=== PATIENT | female | born 1965 | race Caucasian/White ===

== ENCOUNTER 2024-10-06 11:29 | Inpatient (IN) ==
[2024-10-06 12:08] LABS: Base Excess VBG 3.6 mEq/L; HCO3 VBG 30 mmol/L; Oxygen Saturation VBG < 60.0 %; PCO2 VBG 50 mmHg (38-50); PO2 VBG 33 mmHg; pH VBG 7.38 (7.36-7.41)
[2024-10-06 12:22] LABS: Basophils # (auto) 0.04 K/uL (0.00-0.20); Basophils % (auto) 0.4 %; Eosinophils # (auto) 0.01 K/uL (0.00-0.50); Eosinophils % (auto) 0.1 %; Hematocrit (blood only) 38.9 % (37.0-47.0); Immature Granulocytes # (auto) 0.04 K/uL (0.01-0.20); Immature Granulocytes % (auto) 0.4 %; Lymphocytes # (auto) 0.99 K/uL (1.20-3.40); Lymphocytes % (auto) 9.1 %; Mean Corpuscular Hemoglobin 28.6 pg (25.0-34.0); Mean Corpuscular Hgb Conc 33.4 g/dL (32.0-36.0); Mean Corpuscular Volume 85.7 fL (80.0-100.0); Mean Platelet Volume 9.9 fL (9.4-12.4); Monocytes # (auto) 0.53 K/uL (0.11-0.59); Monocytes % (auto) 4.9 %; Neutrophils # (auto) 9.29 K/uL (1.40-6.50); Neutrophils % (auto) 85.1 %; Platelet Count 285 K/uL (130-400); RDW Coefficient of Variation 12.6 % (11.5-14.5); RDW Standard Deviation 38.9 fL (36.4-46.3); Red Blood Count 4.54 M/uL (4.20-5.40)
[2024-10-06 12:47] LABS: BUN Creatinine Ratio 21.8 (10-20); Bilirubin Direct 0.1 mg/dl (0-0.2); Bilirubin,Total 0.5 mg/dl (0.2-1.0); Creatinine Clr Calc Pharmacy 54.4 ml/min; Potassium 5.1 mmol/L (3.5-5.1); Total Protein 6.8 gm/dl (6.0-8.3)
--- NOTE | 2024-10-06 12:48 | CT Scan Report ---
CT head/brain wo con CLINICAL HISTORY: 59 years-old Female with Confusion, R weakness. Acutely altered mental status with weakness and recent fall TECHNIQUE: Multiple axial CT images of the head were obtained without contrast. A dose lowering tech nique was utilized adhering to the principles of ALARA. CT DOSE: 547.75 mGy.cm COMPARISON: None. FINDINGS: There is an ill-defined focus of cortically based increased attenuation within the superior left fron robb lobe measuring up to approximately 2.5 cm on image 20 series 2 compatible with chronic calcificat ion. No associated edema or mass effect. Involutional changes with mild nonspecific white matter hypo densities which may represent a component of chronic microvascular ischemic disease. Senescent calcif ications of the right lentiform nucleus. Cerebral vascular calcifications. There is no midline shift, intracranial mass, hydrocephalus, or acute territorial infarct. No acute intracranial hemorrhage. Sm all chronic lacunar infarcts of the cerebellum. The calvarium is intact. The paranasal sinuses, mastoid air cells, and middle ear cavities are clear . IMPRESSION: 1. No acute intracranial abnormality or calvarial fracture. 2. Nonspecific gyral calcifications of the superior left frontal lobe. ACT 112: Negative or not required by law. The above report was generated using voice recognition software. It may contain grammatical, syntax o r spelling errors. Electronically signed by: Sorin Ricci M.D. 10/06/2024 12:47 PM
[2024-10-06] MEDS: SODIUM CHLORIDE 0.9% 1,000 ML IV ONE ×3 (12:55→13:55)
[2024-10-06 13:04] LABS: Appearance Urine Cloudy (Clear); Bacteria Urine Automated 4+ (None Seen); Bilirubin Urine Negative (Negative); Blood Urine 3+ (Negative); Cast Urine Automated 0-2 /lpf (0-2); Color Urine Yellow; Epithelial Cell Urine Auto 0-2 /hpf (0-2); Glucose Urine UA 3+ (Negative); Ketones Urine Negative (Negative); Leukocyte Esterase Urine 2+ (Negative); Nitrite Urine Negative (Negative); Protein Urine 1+ (Negative); RBC Urine Automated 0-2 /hpf (0-2); Specific Gravity Urine 1.023 (1.000-1.030); Urobilinogen Urine Negative (Negative); WBC Urine Automated >50 /hpf (0-5); pH Urine 5.5 (4.5-7.5)
[2024-10-06] MEDS: METOPROLOL TARTRATE 1 MG/ML VIAL IV STA (13:24)
[2024-10-06 13:48] LABS: Adenovirus PCR Not Detected (NotDetected); Bordetella parapertussis PCR Not Detected (NotDetected); Bordetella pertussis PCR Not Detected (NotDetected); Chlamydia pneumoniae PCR Not Detected (NotDetected); Coronavirus 229E PCR Not Detected (NotDetected); Coronavirus CoV-2 (COVID19)PCR Not Detected (NotDetected); Coronavirus HKU1 PCR Not Detected (NotDetected); Coronavirus NL63 PCR Not Detected (NotDetected); Coronavirus OC43PCR Not Detected (NotDetected); Human Metapneumovirus PCR Not Detected (NotDetected); Influenza A PCR Not Detected (NotDetected); Influenza B PCR Not Detected (NotDetected); Mycoplasma pneumoniae PCR Not Detected (NotDetected); Parainfluenza Virus 1 PCR Not Detected (NotDetected); Parainfluenza Virus 2 PCR Not Detected (NotDetected); Parainfluenza Virus 3 PCR Not Detected (NotDetected); Parainfluenza Virus 4 PCR Not Detected (NotDetected); Respiratory Syncytial VirusPCR Not Detected (NotDetected); Rhinovirus/Enterovirus PCR Not Detected (NotDetected)
[2024-10-06] MEDS ORDERED: STAT IV Infusion **Titration per Protocol STA (14:00)
[2024-10-06] MEDS ORDERED: PENDING D5 1/2NS+20mEq KCL IVF SCH (14:00)
[2024-10-06] MEDS ORDERED: PENDING 1/2NSS+20mEq KCL IVF SCH (14:00)
[2024-10-06] MEDS ORDERED: HHS GOAL RANGE 250-350 mg/dl ONE (14:00)
[2024-10-06] MEDS ORDERED: PHARMACY GLYCEMIC MGMT CONSULT PRN (14:00)
--- NOTE | 2024-10-06 14:08 | History & Physical Report ---
Date of Service October 06, 2024 History of Present Illness Chief Complaint: Hyperglycemia, confusion Primary Care Provider: Milvia Levy PA-C This is a 59-year-old female with PMH of poorly controlled type 2 diabetes, diabetic retinopathy of both eyes, dyslipidemia, hypertension and other medical problems listed below presents to the ED Past Med/Surg History Problem List Medical History (Updated 07/20/18 @ 00:00 by Beulah Smith) Diabetes type 2, uncontrolled Social History Smoking Status: Never smoker Preferred Language: Danish Feels Safe at Home: Yes Results & Data Results & Data Vital Signs (Past 12 Hours) Vital Signs Temp Pulse Pulse Resp BP BP Pulse Ox 10/06/24 12:52 93 H 15 148/98 H 96 10/06/24 12:07 100 H 10/06/24 11:40 36.8 C 97 H 16 183/107 H 98 O2 Del Method 10/06/24 12:52 Room Air 10/06/24 12:07 10/06/24 11:40 Room Air Code Status & VTE Plan VTE Prophylaxis Plan VTE Prophylaxis will be ordered: Yes
[2024-10-06] MEDS: NovoLIN-R INSULIN PER UNIT CHARGE IV STA (14:11)
[2024-10-06] MEDS: cefTRIAXone SODIUM 2,000 MG/50 ML BAG IV STA (14:15)
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
[2024-10-06] MEDS: INSULIN REGULAR 250 UNITS in SODIUM CHLORIDE 0.9% 247.5 ML IV SCH (14:41)
[2024-10-06] MEDS ORDERED: ACETAMINOPHEN 325 MG TAB PO PRN (15:48)
[2024-10-06] MEDS ORDERED: ONDANSETRON INJ 2 MG/ML 2 ML VIAL IV PRN (15:48)
[2024-10-06] MEDS ORDERED: POLYETHYLENE (MIRALAX) 17 GM PACK PO PRN (15:48)
[2024-10-06 15:50] LABS: BUN Creatinine Ratio 21.9 (10-20); Calcium 8.5 mg/dl (8.6-10.3); Creatinine Clr Calc Pharmacy 62.4 ml/min; Magnesium 2.1 mg/dl (1.7-2.4); Phosphorus 3.5 mg/dl (2.5-4.9); Potassium 4.2 mmol/L (3.5-5.1)
[2024-10-06] MEDS ORDERED: lisinopril 20 MG TAB PO SCH (16:15)
[2024-10-06] MEDS ORDERED: GLUCOSE 10 TAB/TUBE PO PRN (16:30)
[2024-10-06] MEDS ORDERED: DEXTROSE 50% 50 ML SYRINGE IV PRN (16:30)
[2024-10-06] MEDS ORDERED: GLUCAGON FOR INJ 1 MG VIAL SQ PRN (16:30)
[2024-10-06] MEDS ORDERED: GLUCOSE 40% GEL 15 GM TUBE PO PRN (16:30)
[2024-10-06] MEDS ORDERED: CARBOHYDRATES FOR HYPOGLYCEMIA PO PRN (16:30)
[2024-10-06] MEDS: Patient's ALLERGY Info needs ENTERED SCH (16:37)
[2024-10-06] MEDS: INSULIN ASPART PER UNIT CHARGE SC ONE (17:58)
[2024-10-06] MEDS: lisinopril 20 MG TAB PO SCH ×2 (18:08→18:30)
[2024-10-06 19:25] LABS: BUN Creatinine Ratio 20.9 (10-20); Calcium 8.5 mg/dl (8.6-10.3); Potassium 3.9 mmol/L (3.5-5.1)
[2024-10-06] MEDS: LANTUS PER UNIT CHARGE SC ONE (20:45)
[2024-10-06] MEDS: SODIUM CHLOR 0.45% + 20MEQ KCL 20 MEQ/1,000 ML BAG IV SCH (21:26)
[2024-10-06] MEDS: INSULIN ASPART PER UNIT CHARGE SC SCH (21:46)
[2024-10-06] MEDS: DORZOLAMIDE/TIMOLOL 22.3/6.8MG/ML 10 ML BTL OPB SCH (22:45)
[2024-10-06 23:33] LABS: BUN Creatinine Ratio 23.8 (10-20); Calcium 8.2 mg/dl (8.6-10.3); Creatinine Clr Calc Pharmacy 71.7 ml/min; Potassium 3.7 mmol/L (3.5-5.1)
[2024-10-07] MEDS: INSULIN ASPART PER UNIT CHARGE SC SCH ×2 (00:11→09:06)
[2024-10-07 02:32] LABS: BUN Creatinine Ratio 24.4 (10-20); Calcium 7.8 mg/dl (8.6-10.3); Creatinine Clr Calc Pharmacy 69.9 ml/min; Potassium 3.9 mmol/L (3.5-5.1)
[2024-10-07 07:40] LABS: BUN Creatinine Ratio 25.3 (10-20); Calcium 7.9 mg/dl (8.6-10.3); Creatinine Clr Calc Pharmacy 72.7 ml/min; Potassium 4.2 mmol/L (3.5-5.1)
[2024-10-07 08:05] LABS: Estimated Average Glucose > 438 mg/dl; Hemoglobin A1C > 16.9 % (4.5-5.6)
--- NOTE | 2024-10-07 08:58 | Ultrasound Report ---
RIGHT LOWER EXTREMITY VENOUS DOPPLER CLINICAL HISTORY: Right lower extremity swelling. COMPARISON STUDY: No previous studies for comparison. TECHNIQUE: Sonography of the deep venous system of the right lower extremity was performed. Compress ion and augmentation were evaluated. FINDINGS: The right common femoral vein is patent. There is nonocclusive deep venous thrombus within the right superficial femoral vein. No additional sites of deep venous thrombus within the right low er extremity are present. IMPRESSION: Positive study with deep venous thrombus within the right superficial femoral vein. ACT 112: Negative or not required by law. Electronically signed by: Doc Gutierres M.D. 10/07/2024 8:57 AM
[2024-10-07] MEDS: ASPIRIN 81 MG ECTAB PO SCH (09:04)
--- NOTE | 2024-10-07 09:23 | Electrocardiogram Report ---
Test Reason : Blood Pressure : */* mmHG Vent. Rate : 103 BPM Atrial Rate : 103 BPM P-R Int : 126 ms QRS Dur : 80 ms QT Int : 342 ms P-R-T Axes : 63 23 74 degrees QTcB Int : 448 ms Sinus tachycardia Poor R wave progression, consider anterior KS vs. lead placement vs. LVH Abnormal ECG No previous ECGs available Confirmed by Jorgito Kim ([id number]) on 10/07/2024 9:23:11 AM Referred By: Confirmed By: Jorgito Kim
[2024-10-07 10:29] LABS: Calcium 8.1 mg/dl (8.6-10.3); Potassium 4.4 mmol/L (3.5-5.1)
[2024-10-07 10:35] LABS: BUN Creatinine Ratio 23.3 (10-20); Creatinine Clr Calc Pharmacy 70.2 ml/min
[2024-10-07] MEDS: APIXABAN 5 MG TABLET PO SCH (13:36)
[2024-10-07] MEDS: GABAPENTIN 100 MG CAP PO SCH (13:37)
[2024-10-07] MEDS: cefTRIAXone SODIUM 2,000 MG/50 ML BAG IV SCH (13:37)
--- NOTE | 2024-10-07 14:09 | CT Scan Report ---
CT OF THE CERVICAL SPINE WITHOUT CONTRAST CLINICAL HISTORY: Arm numbness. Right-sided weakness. COMPARISON STUDY: No previous studies for comparison. TECHNIQUE: Helical axial images of the cervical spine were obtained without IV contrast. Sagittal a nd coronal reconstructions were viewed. Automated exposure control was utilized for the study. A do se lowering technique was utilized adhering to the principles of ALARA. FINDINGS: Alignment of the cervical spine is anatomic. Vertebral body heights are maintained. No acut e cervical spine fracture or subluxation is present. There is no prevertebral edema. Facet joints are intact. The central canal and neural foramen are suboptimally assessed by CT technique. Multiple di sc bulges with osteophyte formation within the cervical spine are present. There is no evidence for s evere central canal stenosis by CT. Paravertebral soft tissues are unremarkable. There is mild to mod erate multilevel degenerative disc disease within the cervical spine. There is mild facet arthrosis. IMPRESSION: 1. No acute cervical spine fracture or subluxation. 2. Mild to moderate multilevel degenerative disc disease and facet arthrosis within the cervical spin e. Suboptimal evaluation of the central canal and neural foramen given CT technique. If clinically in dicated, MRI could be obtained. ACT 112: Negative or not required by law. Electronically signed by: Doc Gutierres M.D. 10/07/2024 2:08 PM
--- NOTE | 2024-10-07 15:02 | Pharmacy Report ---
Pharmacy Glycemic Short Note 2 - Date of Service October 07, 2024 - Glycemic Short BSG Results (Last 24 hours): 10/06/24 10/06/24 10/06/24 14:46 15:09 15:52 Glucose 421 H* POC Glucose 552 H* 466 H* 10/06/24 10/06/24 10/06/24 16:57 17:56 18:57 Glucose 294 H POC Glucose 307 H* 297 H 10/06/24 10/06/24 10/06/24 18:58 20:04 21:15 Glucose POC Glucose 254 H 205 H 195 H 10/06/24 10/06/24 10/06/24 22:18 22:26 22:42 Glucose 109 H POC Glucose 126 H 104 H 10/06/24 10/06/24 10/06/24 23:01 23:20 23:44 Glucose POC Glucose 104 H 118 H 128 H 10/07/24 10/07/24 10/07/24 00:08 01:59 04:10 Glucose 142 H POC Glucose 128 H 156 H 10/07/24 10/07/24 10/07/24 06:11 07:13 09:42 Glucose 143 H 175 H POC Glucose 146 H 10/07/24 11:00 Glucose POC Glucose 156 H OUTPATIENT ANTIDIABETIC REGIMEN: * Levemir 20 units SQ q HS * Ozempic 0.5mg SQ weekly * metformin 1000mg po bid HbA1c > 16.9% on 10/07/24 ASSESSMENT: * 59 year old female admitted last evening for hyperglycemia likely induced by a UTI. Altough BSG on admit was 759mg/dL, this is not likely HHS as the effective serum osmolality is < 320. (Na was 127) * A 10unit regular insulin bolus was given yesterday afternoon and then a regular insulin drip was started at 0.1 units/kg/hr. BSGs quickly decreased and at bedtime BSG was 126mg/dL. * The insulin drip was transitioned to SQ insulin last evening. 15 units of lantus were given last night and a weight based bolus insulin regimen with a stress of 3 was started. * BSGs have remained better controlled today so far. Fasting BSG was 146 this morning. * Lantus 15units q HS will be continued and as will the bolus insulin with the parameters started last evening. * She continues on ceftriaxone for the treatment of her UTI. PLAN FOR INPATIENT GLYCEMIC CONTROL: * Hold outpatient diabetes medications * Basal insulin * Lantus 15 units SQ HS * Bolus insulin * NovoLog per scale ACHS or Q6hrs while NPO * Goal Range: Low 110 mg/dL - High 140 mg/dL * Correction Factor: 20 mg/dL/unit * Nutritional / Prandial insulin per carb ratio of 1 unit per 8 grams CHO consumed
--- NOTE | 2024-10-07 16:48 | Hospitalist Progress Note ---
Date of Service October 07, 2024 Assessment & Plan (1) Diabetes mellitus with hyperosmolarity without hyperglycemic hyperosmolar nonketotic coma: (2) Urinary tract infection: Plan: E. coli (3) Deep vein thrombosis, lower right extremity: (4) Diabetic peripheral neuropathy associated with type 2 diabetes mellitus: (5) Diabetes type 2, uncontrolled: (6) Glaucoma: Plan Patient overall significantly improving now that her HHNK is resolved and glucoses have improved Working with pharmacy and transitioning to basal bolus insulin management, Continue Rocephin for UTI, follow sensitivities Suspect patient may be having peripheral neuropathy associated with her severely uncontrolled diabetes as the etiology of her paresthesias of her right hand. Continue gabapentin if continues to have significant issues with the right arm can move forward with MRI of the cervical spine DVT of right lower extremity, most likely due to immobility. Eliquis started for treatment. Will need to evaluate costs with through case management Therapies Attempted to contact sister, appears as though wrong number is in the EMR Okay to [facility] Admission and Anticipated Discharge Date Admission Date: October 06, 2024 Subjective Patient is feeling improved. More alert. Still with some numbness and tingling of her right hand. Physical Exam Physical Exam: Constitutional: Alert, no acute distress, less toxic in appearance HEENT: Mucous membranes moist. Lungs: Clear to auscultation, decreased, no wheezes rales or rhonchi CV: S1-S2, regular Abdomen: Soft, nontender, nondistended Extremities: Right lower extremity edema 1+, greater than left Neuro: Able to move her right upper extremity. No noted weakness. Psych: Cooperative, normal mood Results & Data Results & Data Vital Signs (Past 12 Hours) Vital Signs Temp Pulse Pulse Resp BP Pulse Ox O2 Del Method 10/07/24 14:43 36.4 C L 81 18 111/71 95 Room Air 10/07/24 11:00 36.8 C 73 18 110/71 95 Room Air 10/07/24 08:00 77 10/07/24 08:00 Room Air 10/07/24 07:14 36.3 C L 77 18 118/71 93 Room Air 10/07/24 06:17 36.5 C 78 20 116/71 95 Room Air Diagnostic Findings Reviewed imaging, laboratory and diagnostic studies. Pertinent findings as below. Right lower extremity ultrasound significant for right superficial femoral DVT CT of the cervical spine shows some mild degenerative disc disease, suboptimal evaluation for central canal or foraminal stenosis. Hemoglobin A1c 16.9% Fingerstick glucose reviewed Electrolytes stable Urine culture growing E. coli (2) Urinary tract infection Hematuria presence: with hematuria Urinary tract infection type: acute cystitis Qualified Code(s): N30.01 - Acute cystitis with hematuria
[2024-10-07] MEDS: LANTUS PER UNIT CHARGE SC SCH (20:27)
--- OUTSIDE RECORDS SUMMARY | 2024-10-08 03:14 | External Medical Summary | Summary of Care ---
Author Name Unknown Organization [facility] Address [address] [place] [address] Phone [phone] Care Team Providers Care Combination Welder Apprentice Name Role Phone Milvia Levy PA-C Primary Care Provider [phone] Reason for Visit * Reason Onset Date Comments Follow Up 09/09/2024 Encounter Details Date Type Department Care Team (Late st Contact Info) Description 09/09/2024 Telephone Ophthalmology, [facility] [address] [place] [id number] Zaheer Cardoza, [address] [place] [id number] Follow Up Allergies No known active allergiesdocumented as of this encounter (statuses as of 09/09/2024) Medications Medication Sig Dispensed Refills Start Date End Date Status aspirin enteric coated 81 MG TBEC Take 1 Tablet by mouth in the morning. 100 Tab 3 07/23/2018 Active OneTouch UltraSoft LancetsIndications :Type 2 diabetes mellitus with hemoglobin A1c goal of less than 7.0% (HCC) Use as directed 4 times a day as needed for Hyperglycemia (high sugar) or Hypoglycemia (low sugar). Use up to four times a day as directed 200 Each 3 02/18/2023 Active OneTouch Verio In Vitro Strip (Glucose Blood)Indications: Type 2 diabetes mellitus with hemoglobin A1c goal of less than 7.0% (HCC) Use up to 4 times a day E11.9 100 Strip 11 02/18/2023 Active Repaglinide 2 MG Oral Tablet Take 2 Tablets by mouth in the morning and 2 Tablets at noon and 2 Tablets in the evening. Take with meals. 15 minutes before each meal. 540 Tablet 1 03/11/2023 Active Ofloxacin 0.3 % Ophthalmic Solution (Ocuflox) Instill 1 Drop into both eyes in the morning and 1 Drop at noon and 1 Drop in the evening and 1 Drop before bedtime. Start this drop in both eyes 2 days prior to every office visit and continue for a total of 5 days.. 5 mL 6 08/16/2023 Active metFORMIN HCl ER 500 MG Oral Tablet Extended Release 24 Hour (Glucophage XR)Indications:Typ e 2 diabetes mellitus with hemoglobin A1c goal of less than 7.0% ([facility]) Take 2 Tablets by mouth 2 times a day with morning and evening meals. 360 Tablet 1 01/24/2024 Active Lisinopril-hydroCH LOROthiazide 10-12.5 MG Oral TabletIndications: HTN, goal below 140/90,HTN, goal below 140/90 Take 1 Tablet by mouth in the morning. 90 Tablet 1 01/24/2024 Active Acarbose 25 MG Oral Tablet (Precose)Indicatio ns:Type 2 diabetes mellitus with hemoglobin A1c goal of less than 7.0% ([facility]) Take 1 Tablet by mouth in the morning and 1 Tablet at noon and 1 Tablet before bedtime. at start of meals. 270 Tablet 1 01/24/2024 Active Magnesium 400 MG Oral TabletIndications: Leg cramps Take 1 Tablet by mouth at bedtime. 100 Tablet 1 01/24/2024 Active Magnesium Oxide -Mg Supplement 400 (240 Mg) MG Oral Tablet (Mag-Ox) TAKE 1 TABLET BY MOUTH EVERYDAY AT BEDTIME 01/24/2024 Active Levemir FlexPen 100 UNIT/ML Subcutaneous Solution Pen-injector (Insulin Detemir)Indication s:Proliferative diabetic retinopathy of both eyes with macular edema associated with type 2 diabetes mellitus (HCC),Type 2 diabetes mellitus with hemoglobin A1c goal of less than 7.0% (HCC) Inject 20 Units under the skin every night at bedtime. 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, with macular edema, with proliferative retinopathy ([facility]) 1.5 mg IJ PRN 08/06/2024 08/06/2025 Active documented as of this encounter (statuses as of 09/09/2024) Active Problems Problem Noted Date Diagnosed Date 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, with macular edema, with proliferative retinopathy 01/24/2024 Proliferative diabetic retin opathy of both eyes with macular edema associated with type 2 diabetes mellitus 07/29/2019 BENIGN HYPERTENSION 06/16/2001 PURE HYPERCHOLESTEROLEM 06/16/2001 Type 2 diabetes mellitus wit h hemoglobin A1c goal of less than 7.0% 06/16/2001 Overview: ICD-10 update of inactive term documented as of this encounter (statuses as of 09/09/2024) Immunizations Name Administration Dates Next Due COVID-19 mRNA, LNP-s, No Pre serve, 2-Dose Series (Moderna) 05/13/2021,04/15/2021 COVID-19, mRNA, LNP-s, PF, B ooster, 100mcg/0.5mg (Moderna) 11/19/2021 Seasonal Influenza Virus Vac cine, Unspecified Formulation 10/02/2018 Seasonal Influenza, PF, 6 M & above, IM , (FluLaval or Fluzone) 07/25/2023,11/30/2021,11/02/2020,2017 TDAP (age 10 and older)(Boostrix) 05/02/2020 documented as of this encounter Social History Tobacco Use Types Packs/Day Years Used Date Smoking Tobacco: Never Smokeless Tobacco: Never Alcohol Use Standard Drinks/Week Comments No 0 (1 standard drink = 0.6 oz pur e alcohol) PHQ-2 Answer Date Recorded PHQ-2 Score -1 01/15/2019 Utilities Answer Date Recorded Do you have trouble paying y our heating, water, or electric bill? (Adult - for ages 18 years and over) Not on file 04/21/2024 Is your family able to pay t he heat, water, or electric bill? (Household - for ages 0-17 years) Not on file 04/21/2024 Does your family have access to good internet? (Household - for ages 0-17 years) Not on file 04/21/2024 Social Connections Answer Date Recorded How often do you feel lonely or isolated from those around you? (Adult - for ages 18 years and over) Not on file 04/21/2024 Sex and Gender Information Value Date Recorded Sex Assigned at Not on file Gender Identity Not on file Sexual Orientation Not on file Job Start Date Occupation Industry Not on file Not on file Not on file documented as of this encounter Miscellaneous Notes * Telephone Encounter - Araceli Valerio OSA - 09/09/2024 3:24 PM EST Pt did not wish to schedule at this time. Wanted to call later to schedule appointment. Needs a 4-6week return. Between Oct 12 and . documented in this encounter Plan of Treatment Health Maintenance Due Date Last Done Comments DXA Scan 1965 Pneumococcal Vaccine: Pediatrics (0 to 5 Years) and At-Risk Patients (6 to 64 Years) (1 of 2 - PCV) 1971 HIV Screening 1980 Hepatitis C Screening 1983 Hepatitis B Vaccine (1 of 3 - 19+ 3-dose series) 1984 Zoster Vaccines (1 of 2) 1984 HPV/Co-Test 1995 Mammogram 2005 Cervical Cancer Screening 03/26/2006 Pap Smear 03/26/2006 03/26/2003, 08/04/2001 Cologuard 2010 Colonoscopy 2010 Colorectal Cancer Screening 2010 Fecal Occult Blood Test 2010 Sigmoidoscopy 2010 Depression Screening 01/16/2020 01/15/2019 Diabetic Foot Exam 11/02/2021 11/02/2020, 1 12/17/2018, 09/17/2018 COVID-19 Vaccine (3 - Moderna risk series) 12/17/2021 11/19/2021, 05/13/2021, 04/15/2021 Influenza Vaccine (FLU shot) (#1) 2024 07/25/2023, 11/30/2021, 11/02/2020, Additional history exists HbA1c 07/26/2024 01/24/2024, 07/06, 01/22/2023, Additional history exists Albumin/Creatinine Ratio 01/23/2025 024, 07/25/2023, 07/25/2022, Additional history exists B-12 01/23/2025 01/24/2024, 01/03, 05/20/2021, Additional history exists GFR 01/23/2025 01/24/2024, 07/06, 01/22/2023, Additional history exists Diabetic Eye Exam 01/30/2025 01/31/2024, , 01/31/2024, Additional history exists Lipid Panel 07/25/2027 07/25/2022, 05/04, 11/02/2020, Additional history exists DTap/Tdap Vaccines (2 - Td or Tdap) 05/02/2030 05/02/2020 HPV (Gardasil) Vaccine Aged Out No lo nger eligible based on patient's age to complete this topic MENINGOCOCCAL (MENACTRA/MENVEO) Aged Out No longer eligible based on patient's age to complete this topic documented as of this encounter Medical Devices Not on filedocumented as of this encounter Care Teams Combination Welder Apprentice Relationship Specialty Start Date End Date Milvia Levy PA-C [phone] [place] [id number] PCP - General Physician Mechanical Product Design Engineer 01/24/24 documented as of this encounter
--- OUTSIDE RECORDS SUMMARY | 2024-10-08 03:14 | External Medical Summary | Summary of Care ---
Author Name Unknown Organization [facility] Address [address] [facility] [address] Phone [phone] Care Team Providers Care Sales Representative Jewelry Name Role Phone Milvia Levy PA-C Primary Care Provider +1 [phone] Reason for Visit * Reason Comments Follow Up * Precert (Within 10 days (routine)) - Authorized Specialty Diagnoses / Procedures Referred By Qasim weller Referred To Contact Ophthalmology Diagnoses Type 2 diabetes mellitus with proliferative diabetic retinopathy with macular edema, bilateral (HCC) Procedures IA BEVACIZUMAB INJECTION IA INTRAVITREAL NJX PHARMACOLOGIC AGT SPX Zaheer Cardoza DO [address] [place] [address] Referral ID Status Reason Start Date Expiration Date V isits Requested Visits Authorized [id number] Authorized Precert 08/13/2024 11/03/2099 [id number] Encounter Details Date Type Department Care Team (Late st Contact Info) Description 09/09/2024 2:30 PM EST Office Visit Ophthalmology, [facility] [address] [place] [address] Zaheer Cardoza DO [address] [place] [address] Proliferative diabetic retinopathy of both eyes with macular edema associated with type 2 diabetes mellitus (HCC)* Allergies No known active allergiesdocumented as of [...] A1c goal of less than 7.0% (HCC) Take 2 Tablets by mouth 2 times [...] A1c goal of less than 7.0% (HCC) Take 1 Tablet by mouth in the [...] hemoglobin A1c goal of less than 7.0% ([facility]) Use with levemir daily 90 Each 1 [...] with macular edema, with proliferative retinopathy (HCC) 1.5 mg IJ PRN 08/06/2024 08/06/2025 Active [...] on file documented as of this encounter Progress Notes * Zaheer Cardoza DO - 09/09/2024 2:30 PM EST [facility] [place] Nursing Notes: Vita Obregon RN 09/09/24 1430 Signed Gladis Cevallos is a 59 year old year old female who presents for NVG/PDR OU. 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 Yes. Do you check your blood sugars daily? YES. Fasting BS this mornin mg/dl. Last Hemoglobin A1C: Lab Results Component Value Date/Time HGBA1C 12.7 (H) 01/24/2024 12:16 PM HGBA1C 9.5 (H) 07/25/2023 12:18 PM HGBA1C 14.1 (H) 01/22/2023 12:14 PM HGBA1C 8.7 (H) 11/02/2020 12:15 PM HGBA1C 8.3 (H) 05/02/2020 04:10 PM HGBA1C 6.9 (H) 10/16/2019 04:[address]? yes OCT image(s) of both eyes acquired and filed/scanned into chart. Base Eye Exam Visual Acuity (Snellen - Linear) Right Left Dist cc 20/150 -2 20/200 -1 Dist ph cc 20/150 NI Correction: Glasses OU-"blurry" Tonometry (2:28 PM) Right Left Pressure 12 12 Pupils Pupils APD Right PERRL None Left PERRL None Visual Vyas (Counting fingers) Right Left Restrictions Partial outer superior nasal, inferior nasal deficiencies Partial outer superior temporal, inferior temporal, superior nasal, inferior nasal deficiencies Extraocular Movement Right Left Full, Ortho Full, Ortho Neuro/Psych Oriented x3: Yes Mood/Affect: Normal Dilation Both eyes: 0.5% Proparacaine @ 2:28 PM Dilation #2 Both eyes: 1.0% Mydriacyl, 2.5% Phenylephrine @ 2:28 PM Dilation #3 Both eyes: 1.0% Mydriacyl, 2.5% Phenylephrine @ 2:30 PM Dilation Comments Patient cautioned that effects of dilation may last 2-7 hours dependant upon individual reaction. It was discussed that driving while dilated is not recommended. EXTERNAL: The ocular adnexae are unremarkable. SLE: Lids/Lashes: wnl OU Conjunctiva/Sclera: quiet OU Cornea: clear OU Anterior Chamber: deep and quiet OU Iris: normal OU; no NVI OD; +NVI OS-regressed Lens: 1-2+mixed cataracts OU Dilated fundus exam OD: vitreous: VH--new/worse optic nerve: 0.2, no edema/pallor, regressed NVD macula: environmental director vessels: wnl periphery: PRP, environmental director, no RT/RD Dilated fundus exam OS: vitreous: VH optic nerve: NVD/fibrosis macula: environmental director vessels: wnl periphery: PRP, environmental director, no RT/RD Faint choroidal nevus in the nasal periphery with overlying drusen. Flat. Measures approximately 2.8 mm x 3.6 mm. OCT Interpretation: OD: +dme--improved OS: +dme--improved A/P: 1. Proliferative Diabetic Retinopathy/NVG OU -s/p PRP Tuller -s/p Avastin OU (last 01/31/24 Gómez) OD: -09/09/2024 --VH OD -Avastin 09/09/2024 OS: -08/06/2024 ; stable DME, +new NVI OS -Avastin 08/06/24 OS -5 weeks 09/09/2024: improved DME -recommend HgbA1C <7, BP and lipid control. Continue: Cosopt 1 drop 2 times a day both eyes -An examination for this condition was completed which is unrelated to the procedure that was performed today -monitor 2. Choroidal nevus OS -low risk -monitor 3. Cataracts OU -monitor F/u 4-6 weeks, OCT OU Zaheer Cardoza DO CC: Milvia Levy PA-C CC: PCP: Milvia Levy PA-C TIMEOUT PROCEDURE: correct patient identity-YES correct procedure and consent-YES verified side and site-YES correct patient position-YES all necessary equipment/prior studies present-YES reviewed special requirements of this patient-YES PROCEDURE: Intravitreal injection of Avastin 1.25mg OD INFORMED CONSENT: Patient is aware that this is an off-label use of Avastin and that Avastin is not FDA approved for this use. Risks, benefits and alternatives have been discussed with the patient. Risks include, but are not limited to: retinal tears, detachments, hemorrhage, glaucoma, infection, cataracts, need formore procedures and the potential risk of arterial thromboembolic events following use of intravitreal VEGF inhibitors defined as nonfatal stroke, nonfatal myocardial infarction or vascular . Patient is aware of these risks and consents to the procedure. DESCRIPTION OF PROCEDURE: The procedure site was confirmed. Topical proparacaine was applied to the surface of the eye after which subconjunctival anesthetic was administered. The area was prepped in the standard aseptic manner with 5% Betadine solution. An eyelid speculum was placed and 0.05 ml of a 25mg/ml solution of Avastin was injected 3.75 mm posterior to the limbus into the midvitreous cavity with a 30 gauge short needle. The Betadine was flushed from the eye, the eye speculum was removed and optic nerve perfusion was insured. The patient tolerated the procedure without difficulty and was given followup instructions and instructed to use ophthalmic ointment 3x/day as needed. Zaheer Cardoza DO, performed the procedure in its entirety. documented in this encounter Nursing Notes * Kathrine Hayward MED ASSIST - 09/09/2024 3:00 PM EST Gladis Cevallos to receive 37 Avastin 2.75MG Injection of the Right eye. Correct eye confirmed with patient and marked by Zaheer Cardoza DO Avastin 2.75MG lot # [id number] Exp. Date: 11/10/24 * Vita Obregon RN - 09/09/2024 2:20 PM EST Gladis Cevallos is a 59 year old year old female who presents for NVG/PDR OU. 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 Yes. Do you check your blood sugars daily? YES. Fasting BS this mornin mg/dl. Last Hemoglobin A1C: Lab Results Component Value Date/Time HGBA1C 12.7 (H) 01/24/2024 12:16 PM HGBA1C 9.5 (H) 07/25/2023 12:18 PM HGBA1C 14.1 (H) 01/22/2023 12:14 PM HGBA1C 8.7 (H) 11/02/2020 12:15 PM HGBA1C 8.3 (H) 05/02/2020 04:10 PM HGBA1C 6.9 (H) 10/16/2019 04:[address]? yes OCT image(s) of both eyes acquired and filed/scanned into chart. documented in this encounter Plan of Treatment Scheduled Orders Name Type Priority Associated Diagnoses Orde r Schedule RETINA SCAN DIAGNOSTIC IMAGE, POSTERIOR Procedures Routine Proliferative diabetic retinopathy of both eyes with macular edema associated with type 2 diabetes mellitus (HCC) Ordered: 09/09/2024 Health Maintenance Due Date Last Done Comments [...] 05/20/2021, Additional history exists GFR 01/23/2025 01/24/2024, 09/2 11/2022, 01/22/2023, Additional history exists Diabetic Eye Exam 01/30/2025 01/31/2024, , 01/31/2024, Additional history exists Lipid Panel 07/25/2027 07/25/2022, 0705/2021, 11/02/2020, Additional history exists DTap/Tdap Vaccines (2 - Td or Tdap) 05/02/2030 05/02/2020 HPV (Gardasil) Vaccine Aged Out No lo nger eligible based on patient's age to complete this topic MENINGOCOCCAL (MENACTRA/MENVEO) Aged Out No longer eligible based on patient's age to complete this topic documented as of this encounter Medical Devices Not on filedocumented as of this encounter Visit Diagnoses Diagnosis Proliferative diabetic retinopathy of both eyes with macular edema associated with type 2 diabetes mellitus (HCC)- Primary documented in this encounter Administered Medications Active Administered Medications - up to 3 most recent administrations Medication Order MAR Action Action Date Dose Rate Site bevaCIZumab (Avastin) inj 1.25 mg 1.25 mg, Intravitreal, PRN Other, Starting on Leeanna 08/06/24 at 0928, Until Sat08/06/25 at 09, For 365 days Given 09/09/2024 3:01 PM EST 2.75 mg Eye R ight Given 08/06/2024 10:55 AM EDT 1.25 mg E ye Left ROPivacaine (Naropin) inj 1.5 mg 1.5 mg, Injection, PRN Other, Starting on Leeanna 08/06/24 at 0928, Until Sat08/06/25 at 09, For 365 days Given 09/09/2024 3:01 PM EST 1.5 mg Eye R ight Given 08/06/2024 10:55 AM EDT 1.5 mg E ye Left documented in this encounter Care Teams Sales Representative Jewelry Relationship Specialty Start Date End Date Milvia Levy PA-C [address] [facility] [place] [address] PCP - General Physician Livestock Inspector 01/24/24 documented as of this encounter
--- OUTSIDE RECORDS SUMMARY | 2024-10-08 03:14 | External Medical Summary | Summary of Care ---
Author Name Unknown Organization [facility] Address [address] [place] [address] Phone [phone] Care Team Providers Care Wind Development Director Name Role Phone Milvia Levy PA-C Primary Care Provider [phone] [phone] Reason for Visit * Reason Onset Date Comments Health Maintenance 09/08/2024 Encounter Details Date Type Department Care Team (Late st Contact Info) Description 09/08/2024 Telephone [facility] [address] [place] [address] Milvia Levy PA-C [address] [place] [address] Health Maintenance Allergies No known active allergiesdocumented as of this encounter (statuses as of 09/08/2024) Medications Medication Sig Dispensed Refills Start Date [...] hemoglobin A1c goal of less than 7.0% ([facility]) Take 1 Tablet by mouth in the [...] as of this encounter (statuses as of 09/08/2024) Active Problems Problem Noted Date Diagnosed Date [...] as of this encounter (statuses as of 09/08/2024) Immunizations Name Administration Dates Next Due COVID-19 [...] encounter Miscellaneous Notes * Telephone Encounter - Ghazal Griffith ROGELIO - 09/08/2024 9:35 AM EST Care Gaps Comprehensive Care Outreach Last Office/Telemedicine Visit: 07/24/2024 (in office), Visit date not found (telemedicine) Next Office Visit: Visit date not found Hemoglobin AIC Results: Lab Results Component Value Date/Time HEMOGLOBIN A1C - [facility] 12.7 (H) 01/24/2024 12:16 PM HEMOGLOBIN A1C - [facility] 9.5 (H) 07/25/2023 12:18 PM HEMOGLOBIN A1C - [facility] 14.1 (H) 01/22/2023 12:14 PM HEMOGLOBIN A1C - [facility] 8.7 (H) 11/02/2020 12:15 PM HEMOGLOBIN A1C - [facility] 8.3 (H) 05/02/2020 04:10 PM HEMOGLOBIN A1C - [facility] 6.9 (H) 10/16/2019 04:08 PM BP Readings from Last 1 Encounters: 07/24/24 148/88 Reviewed Health Maintenance below: Health Maintenance Topic Date Due DXA Scan Never done Pneumococcal Vaccine: Pediatrics (0 to 5 Years) and At-Risk Patients (6 to 64 Years) (1 of 2 - PCV)Never done HIV Screening Never done Hepatitis C Screening Never done Hepatitis B Vaccine (1 of 3 - 19+ 3-dose series) Never done Zoster Vaccines (1 of 2) Never done Mammogram Never done Cervical Cancer Screening 03/26/2006 Colorectal Cancer Screening Never done Depression Screening 01/16/2020 Diabetic Foot Exam 11/02/2021 COVID-19 Vaccine (3 - Moderna risk series) 12/17/2021 Influenza Vaccine (FLU shot) (1) 07/05/2024 HbA1c 07/26/2024 Albumin/Creatinine Ratio 01/23/2025 GFR 01/23/2025 B-12 01/23/2025 Diabetic Eye Exam 01/30/2025 Ov 3 month dec Dexa Mamm Pap Refused all HM with pcp last month labs alredy ordered Care Gap Outreach Action Taken: Left message documented in this encounter Plan of Treatment Upcoming Encounters Date Type Department Care Team (Late st Contact Info) Description 09/09/2024 2:30 PM EST Office Visit Ophthalmology, [facility] [address] [place] [address] Zaheer Cardoza, [address] [place] [address] Health Maintenance Due Date Last Done Comments [...] filedocumented as of this encounter Care Teams Wind Development Director Relationship Specialty Start Date End Date Milvia Levy PA-C [address] [facility] [place] [address] PCP - General Physician Digital Sales Manager 01/24/24 documented as of this encounter
--- OUTSIDE RECORDS SUMMARY | 2024-10-08 03:14 | External Medical Summary | Summary of Care ---
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 100 Tab 3 07/23/20 18 Active OneTouch UltraSoft LancetsIndication s:Type 2 diabetes mellitus with hemoglobin A1c goal of less than 7.0% (HCC) Use as directed 4 times a day as needed for Hyperglycemia (high sugar) or Hypoglycemia (low sugar). Use up to four times a day as directed 200 Each 3 02/19/20 23 Active OneTouch Verio In Vitro Strip (Glucose Blood)Indications :Type 2 diabetes mellitus with hemoglobin A1c goal of less than 7.0% (HCC) Use up to 4 times a day E11.9 100 Strip 11 02/19/20 23 Active Repaglinide 2 MG Oral Tablet Take 2 Tablets by mouth in the morning and 2 Tablets at noon and 2 Tablets in the evening. Take with meals. 15 minutes before each meal. 540 Tablet 1 03/11/20 23 Active Ofloxacin 0.3 % Ophthalmic Solution (Ocuflox) Instill 1 Drop into both eyes in the morning and 1 Drop at noon and 1 Drop in the evening and 1 Drop before bedtime. Start this drop in both eyes 2 days prior to every office visit and continue for a total of 5 days.. 5 mL 6 08/16/20 23 Active metFORMIN HCl ER 500 MG Oral Tablet Extended Release 24 Hour (Glucophage XR)Indications:Ty pe 2 diabetes mellitus with hemoglobin A1c goal of less than 7.0% (HCC) Take 2 Tablets by mouth 2 times a day with morning and evening meals. 360 Tablet 1 01/24/20 24 Active Lisinopril-hydroC HLOROthiazide 10-12.5 MG Oral TabletIndications :HTN, goal below 140/90,HTN, goal below 140/90 Take 1 Tablet by mouth in the morning. 90 Tablet 1 01/24/20 24 Active Acarbose 25 MG Oral Tablet (Precose)Indicati ons:Type 2 diabetes mellitus with hemoglobin A1c goal of less than 7.0% (HCC) Take 1 Tablet by mouth in the morning and 1 Tablet at noon and 1 Tablet before bedtime. at start of meals. 270 Tablet 1 01/24/20 24 Active Magnesium 400 MG Oral TabletIndications :Leg cramps Take 1 Tablet by mouth at bedtime. 100 Tablet 1 01/24/20 24 Active Magnesium Oxide -Mg Supplement 400 (240 Mg) MG Oral Tablet (Mag-Ox) TAKE 1 TABLET BY MOUTH EVERYDAY AT BEDTIME 01/24/20 24 Active Levemir FlexPen 100 UNIT/ML Subcutaneous Solution Pen-injector (Insulin Detemir)Indicatio ns:Proliferative diabetic retinopathy of both eyes with macular edema associated with type 2 diabetes mellitus (HCC),Type 2 diabetes mellitus with hemoglobin A1c goal of less than 7.0% (HCC) Inject 20 Units under the skin every night at bedtime. 3 Each 3 07/24/20 24 Active BD Pen Needle Theresa U/F 32G X 4 MM (Insulin Pen Needle)Indication s:Proliferative diabetic retinopathy of both eyes with macular edema associated with type 2 diabetes mellitus (HCC),Non compliance w medication regimen,Type 2 diabetes mellitus with hemoglobin A1c goal of less than 7.0% (HCC) Use with levemir daily 90 Each 1 07/24/20 24 Active Dorzolamide HCl-Timolol Mal 2-0.5 % Ophthalmic Solution (Cosopt) Instill 1 Drop into both eyes in the morning and 1 Drop before bedtime. 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, with macular edema, with proliferative retinopathy 01/24/2024 Proliferative diabetic retin opathy of both eyes with macular edema associated with type 2 diabetes mellitus 07/29/2019 BENIGN HYPERTENSION 06/16/2001 PURE HYPERCHOLESTEROLEM 06/16/2001 Type 2 diabetes mellitus wit h hemoglobin A1c goal of less than 7.0% 06/16/2001 Overview (02/28/2016): ICD-10 update of inactive term documented as of this encounter (statuses as of 09/21/2024) Immunizations Name Administration Dates Next Due COVID-19 [...] years and over) Not on file 04/21/2024 Comments No Sex and Gender Information Value Date Recorded Sex Assigned at Not on file Legal Sex Female 7:02 AM EST Gender Identity Not on file Sexual Orientation Not on file 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 Not on file Not on file Not on file documented as of this encounter Miscellaneous Notes * Telephone Encounter - Zaheer Cardoza DO - 09/21/2024 8:49 AM ESTSigned Prescriptions: Disp Refills Dorzolamide HCl-Timolol Mal 2-0.5 % Ophtha*10 mL 6 Sig: Instill 1 Drop into both eyes in the morning and 1 Drop before bedtime.Authorizing Provider: ZAHEER CARDOZA documented in this encounter Plan of Treatment Upcoming Encounters Date Type Department Care Team (Late st Contact Info) Description 10/16/2024 8:30 AM EST Office Visit Ophthalmology, [facility] [address] [place] [address] Zaheer Cardoza DO [address] [place] [address] Health Maintenance Due Date Last Done Comments [...] as of this encounter Visit Diagnoses Diagnosis 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
--- OUTSIDE RECORDS SUMMARY | 2024-10-08 03:14 | External Medical Summary | Summary of Care ---
Author Name Unknown Organization [facility] Address [address] [facility] [place] [address] Phone [phone] Care Team Providers Care General Warehouse Associate Name Role Phone Milvia Levy PA-C Primary Care Provider [phone] Encounter Details Date Type Department Care Team (Late st Contact Info) Description 09/21/2024 Telephone Ophthalmology, [facility] [address] [place] [address] Zaheer Cardoza, [address] [place] [address] Allergies No known active allergiesdocumented as of [...] before bedtime. 10 mL 6 09/21/20 24 Active Dorzolamide HCl-Timolol Mal 2-0.5 % [...] on file documented as of this encounter Plan of Treatment Upcoming Encounters Date Type Department Care Team (Late st Contact Info) Description 10/16/2024 8:30 AM EST Office Visit Ophthalmology, [facility] [address] [place] [address] Zaheer Cardoza, DO [address] [place] [address] Health Maintenance Due Date Last Done Comments [...] with macular edema, with proliferative retinopathy (HCC) documented in this encounter Care Teams General Warehouse Associate Relationship Specialty Start Date End Date Milvia Levy PA-C [address] [facility] [place] [address] PCP - General Physician Java Manager 01/24/24 documented as of this encounter
--- OUTSIDE RECORDS SUMMARY | 2024-10-08 03:14 | External Medical Summary | Summary of Care ---
Author Name Unknown Organization [facility] Address [address] [facility] [address] Phone [phone] Care Team Providers Care Talent Acquisition Manager Name Role Phone Milvia Levy PA-C Primary Care Provider [phone] Reason for Visit * Reason Comments Follow Up * Precert (Within 10 days (routine)) - Authorized Specialty Diagnoses / Procedures Referred By Qasim weller Referred To Contact Ophthalmology Diagnoses Type 2 diabetes mellitus with proliferative diabetic retinopathy with macular edema, bilateral (HCC) Procedures AK BEVACIZUMAB INJECTION AK INTRAVITREAL NJX PHARMACOLOGIC AGT SPX Zaheer Cardoza DO [address] [place] [address] Referral ID Status Reason Start Date Expiration Date V isits Requested Visits Authorized [id number] Authorized Precert 08/13/2024 11/03/[phone] Encounter Details Date Type Department Care Team (Late st Contact Info) Description 09/09/2024 2:30 PM EST Office Visit Ophthalmology, [facility] [address] [place] [address] Zaheer Cardoza DO [address] [place] [address] Proliferative diabetic retinopathy of both eyes with [...] hemoglobin A1c goal of less than 7.0% ([facility]) Use with levemir daily 90 Each 1 [...] Cardoza DO - 09/09/2024 2:30 PM EST [facility] [place] Nursing Notes: Vita [...] nerve: 0.2, no edema/pallor, regressed NVD macula: media specialist vessels: wnl periphery: PRP, media specialist, no RT/RD Dilated fundus exam OS: vitreous: VH optic nerve: NVD/fibrosis macula: media specialist vessels: wnl periphery: PRP, media specialist, no RT/RD Faint choroidal nevus in the [...] Zaheer Cardoza DO Avastin 2.75MG lot # [id number] Exp. Date: 11/10/24 * Vita Obregon RN [...] Left documented in this encounter Care Teams Talent Acquisition Manager Relationship Specialty Start Date End Date Milvia Levy PA-C [address] [facility] [address] PCP - General Physician Linux Systems Administrator 01/24/24 documented as of this encounter
--- OUTSIDE RECORDS SUMMARY | 2024-10-08 03:15 | External Medical Summary | Summary of Care ---
Author Name Unknown Organization [facility] Address [address] [place] [address] Phone [phone] Care Team Providers Care Migration Specialist Name Role Phone Milvia Levy PA-C Primary Care Provider [phone] [phone] Encounter Details Date Type Department Care Team (Late st Contact Info) Description 07/24/2024 Telephone Optometry, [place] [address] [place], [place] [id number] Ajith Rodriguez, [place] [address] [place], [place] [id number] Allergies No known active allergiesdocumented as of this encounter (statuses as of 07/24/2024) Medications Medication Sig Dispensed Refills Start Date End Date Status aspirin enteric coated 81 MG TBEC Take 1 Tablet by mouth in the morning. 100 Tab 3 07/23/2018 Active OneTouch UltraSoft LancetsIndicatio ns:Type 2 diabetes mellitus with hemoglobin A1c goal of less than 7.0% (HCC) Use as directed 4 times a day as needed for Hyperglycemia (high sugar) or Hypoglycemia (low sugar). Use up to four times a day as directed 200 Each 3 02/18/2023 Active OneTouch Verio In Vitro Strip (Glucose Blood)Indication s:Type 2 diabetes mellitus with hemoglobin A1c goal of less than 7.0% (HCC) Use up to 4 times a day E11.9 100 Strip 11 02/18/2023 Active Repaglinide 2 MG Oral Tablet Take 2 Tablets by mouth in the morning and 2 Tablets at noon and 2 Tablets in the evening. Take with meals. 15 minutes before each meal. 540 Tablet 1 03/11/2023 Active Dorzolamide HCl-Timolol Mal 22.3-6.8 MG/ML Ophthalmic Solution (Cosopt) Instill 1 Drop into both eyes in the morning and 1 Drop before bedtime. 10 mL 4 07/12/2023 Active Ofloxacin 0.3 % Ophthalmic Solution (Ocuflox) [...] Oral Tablet Extended Release 24 Hour (Glucophage XR)Indications:T ype 2 diabetes mellitus with hemoglobin A1c goal of less than 7.0% (HCC) Take 2 Tablets by mouth 2 times a day with morning and evening meals. 360 Tablet 1 01/24/2024 Active Lisinopril-hydro CHLOROthiazide 10-12.5 MG Oral TabletIndication s:HTN, goal below 140/90,HTN, goal below 140/90 Take 1 Tablet by mouth in the morning. 90 Tablet 1 01/24/2024 Active Acarbose 25 MG Oral Tablet (Precose)Indicat ions:Type 2 diabetes mellitus with hemoglobin A1c goal of less than 7.0% (HCC) Take 1 Tablet by mouth in the morning and 1 Tablet at noon and 1 Tablet before bedtime. at start of meals. 270 Tablet 1 01/24/2024 Active Magnesium 400 MG Oral TabletIndication s:Leg cramps Take 1 Tablet by mouth at bedtime. 100 Tablet 1 01/24/2024 Active Magnesium Oxide -Mg Supplement 400 (240 Mg) MG Oral Tablet (Mag-Ox) TAKE 1 TABLET BY MOUTH EVERYDAY AT BEDTIME 01/24/2024 Active BD Pen Needle Theresa U/F 32G X 4 MM (Insulin Pen Needle)Indicatio ns:Non compliance w medication regimen,Type 2 diabetes mellitus with hemoglobin A1c goal of less than 7.0% (HCC) Use with ozempic. 12 Each 1 07/25/2023 Discontinue d(Refill) documented as of this encounter (statuses as of 07/24/2024) Active Problems Problem Noted Date Diagnosed Date [...] as of this encounter (statuses as of 07/24/2024) Immunizations Name Administration Dates Next Due COVID-19 [...] encounter Miscellaneous Notes * Telephone Encounter - Aline Howard OSA - 07/24/2024 12:34 PM EDT ERROR documented in this encounter Plan of Treatment Upcoming Encounters Date Type Department Care Team (Late st Contact Info) Description 08/06/2024 8:30 AM EDT Office Visit Ophthalmology, [facility] [address] [place] [address] Zaheer Cardoza DO [address] [place] [address] Health Maintenance Due Date Last Done Comments DXA Scan 1965 Pneumococcal Vaccine: Pediatrics (0 to 5 Years) and At-Risk Patients (6 to 64 Years) (1 of 2 - PCV) 1971 HIV Screening 1980 Hepatitis C Screening 1983 Hepatitis B Vaccine (1 of 3 - 19+ 3-dose series) 1984 HPV/Co-Test 1995 Mammogram 2005 Cervical Cancer Screening 03/26/2006 Pap Smear 03/26/2006 03/26/2003, 08/04/2001 Cologuard 2010 Colonoscopy 2010 Colorectal Cancer Screening 2010 Fecal Occult Blood Test 2010 Sigmoidoscopy 2010 Zoster Vaccines (1 of 2) 2015 Depression Screening 01/16/2020 01/15/2019 Diabetic Foot Exam 11/02/2021 11/02/2020, 1 12/17/2018, 09/17/2018 COVID-19 Vaccine ( season) 2024 11/19/2021, 05/13/2021, 04/15/2021 Influenza Vaccine (FLU shot) [...] filedocumented as of this encounter Care Teams Migration Specialist Relationship Specialty Start Date End Date Milvia Levy PA-C [address] [place] [address] PCP - General Physician Station Mechanic Helper 01/24/24 documented as of this encounter
--- OUTSIDE RECORDS SUMMARY | 2024-10-08 03:15 | External Medical Summary | Summary of Care ---
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 100 Tab 3 07/23/2018 Active ThoughtBoxTouch UltraSoft LancetsIndication s:Type 2 diabetes mellitus with hemoglobin A1c goal of less than 7.0% (HCC) Use as directed 4 times a day as needed for Hyperglycemia (high sugar) or Hypoglycemia (low sugar). Use up to four times a day as directed 200 Each 3 02/18/2023 Active ThoughtBoxTouch Verio In Vitro Strip (Glucose Blood)Indications :Type [...] evening meals. 360 Tablet 1 01/24/2024 Active Lisinopril-hydroC HLOROthiazide 10-12.5 MG Oral TabletIndications :HTN, goal below 140/90,HTN, goal below 140/90 Take 1 Tablet by mouth in the morning. 90 Tablet 1 01/24/2024 Active Acarbose 25 MG Oral Tablet (Precose)Indicati ons:Type 2 diabetes mellitus with hemoglobin A1c goal of less than 7.0% (HCC) Take 1 Tablet by mouth in the morning and 1 Tablet at noon and 1 Tablet before bedtime. at start of meals. 270 Tablet 1 01/24/2024 Active Magnesium 400 MG Oral TabletIndications :Leg [...] (HCC) Use with levemir daily 90 Each 07/24/2024 Active BD Pen Needle Theresa U/F 32G X 4 MM (Insulin Pen Needle)Indication s:Non compliance w medication regimen,Type 2 diabetes mellitus with hemoglobin A1c goal of less than 7.0% (HCC) Use with ozempic. 12 Each 07/25/2023 4 Discontinu ed(Refill) Ozempic (0.25 or 0.5 MG/DOSE) 2 MG/3ML Solution Pen-injector (Semaglutide(0.25 or 0.5MG/DOS))Indica tions:Type 2 diabetes mellitus with hemoglobin A1c goal of less than 7.0% ([facility]) Inject 0.5 mg under the skin once a week. 9 mL 1 06/30/2024 4 Discontinu ed(Formula ry/Cost) documented as of this encounter (statuses as [...] Date Smoking Tobacco: Never Smokeless Tobacco: Never Tobacco Cessation:Counseling Given: Not Answered Alcohol Use Standard Drinks/Week Comments No 0 [...] on file documented as of this encounter Last Filed Vital Signs Vital Sign Reading Time Taken Comments Blood Pressure 148/88 07/24/2024 12:16 PM EDT Pulse 84 07/24/2024 12:16 PM EDT Temperature 35.8 C (96.4 F) 07/24/2024 12:16 PM E DT Respiratory Rate 16 07/24/2024 12:16 PM EDT Oxygen Saturation 97% 07/24/2024 12:16 PM EDT Inhaled Oxygen Concentration - - Weight 80.1 kg (176 lb 9.6 oz) 07/24/2024 12:16 PM EDT Height 157.5 cm (5' 2") 07/24/2024 12:16 PM EDT Body Mass Index 32.3 07/24/2024 12:16 PM EDT documented in this encounter Progress Notes * Milvia Levy PA-C - 07/24/2024 12:20 PM EDT Images from the original note were not included. History of Present Illness Gladis Cevallos is a 59 year old female that presents for Follow Up (Pt states that she is here for a follow up) Here for reg return Historically poorly controlled diabetic. She has not been on ozempic - it will cost her $900. She is due to see the eye doctor. She cannot drive to [place] by herself. Results for orders placed or performed in visit on 01/24/24 HEMOGLOBIN A1C Result Value Ref Range Hemoglobin A1C 12.7 (H) 4.0 - 5.6 % Estimated Average Glucose 318 (H) <126 mg/dL COMPREHENSIVE METABOLIC PANEL Result Value Ref Range BUN 16 6 - 20 mg/dL CREATININE 0.7 0.5 - 1.0 mg/dL EGFR >90 >=60 mL/min SODIUM 132 (L) 135 - 146 mmol/L POTASSIUM 5.2 (H) 3.5 - 5.1 mmol/L CHLORIDE 94 (L) 98 - 107 mmol/L CO2 30 22 - 32 mmol/L ANION GAP 8 7 - 15 mmol/L GLUCOSE 444 (H) 70 - 120 mg/dL Albumin 3.8 3.8 - 5.0 g/dL AST 24 10 - 35 U/L Alkaline Phosphatase 87 35 - 130 U/L Bilirubin, Total 0.5 <=1.2 mg/dL CALCIUM 9.8 8.4 - 10.2 mg/dL Protein 6.6 6.0 - 8.3 g/dL ALT 27 10 - 35 U/L VITAMIN B12 Result Value Ref Range Vitamin B12 426 232 - 1,245 pg/mL ALBUMIN / CREATININE RATIO, URINE Result Value Ref Range Albumin, Random Urine 21.19 mg/dL Creatinine, Random Urine 48 mg/dL Albumin / Creatinine Ratio, Urine 441 (H) <30 mg/g Creat Past Medical History: Diagnosis Date Both eyes affected by proliferative diabetic retinopathy and macular edema (HCC) DM type 2, goal A1c below 7 1994 HTN, goal below 140/90 1998 BD Pen Needle Theresa U/F 32G X 4 MM (Insulin Pen Needle) Levemir FlexPen 100 UNIT/ML Subcutaneous Solution Pen-injector (Insulin Detemir) Magnesium Oxide -Mg Supplement 400 (240 Mg) MG Oral Tablet (Mag-Ox) Acarbose 25 MG Oral Tablet (Precose) Lisinopril-hydroCHLOROthiazide 10-12.5 MG Oral Tablet Magnesium 400 MG Oral Tablet metFORMIN HCl ER 500 MG Oral Tablet Extended Release 24 Hour (Glucophage XR) Ofloxacin 0.3 % Ophthalmic Solution (Ocuflox) Dorzolamide HCl-Timolol Mal 22.3-6.8 MG/ML Ophthalmic Solution (Cosopt) Repaglinide 2 MG Oral Tablet OneTouch UltraSoft Lancets OneTouch Verio In Vitro Strip (Glucose Blood) aspirin enteric coated 81 MG TBEC Physical Exam Vitals: 07/24/24 1216 Temp: 35.8 C (96.4 F) Pulse: 84 Resp: 16 SpO2: 97% BP: 148/88 BMI: 32.29 BP Readings from Last 3 Encounters: 07/24/24 148/88 01/31/24 158/89 01/24/24 148/86 Wt Readings from Last 3 Encounters: 07/24/24 80.1 kg (176 lb 9.6 oz) 01/24/24 80.7 kg (178 lb) 07/25/23 77.7 kg (171 lb 6.4 oz) BMI Readings from Last 3 Encounters: 07/24/24 32.30 kg/m 01/24/24 32.56 kg/m 07/25/23 31.35 kg/m Ht Readings from Last 3 Encounters: 07/24/24 1.575 m (5' 2") 01/24/24 1.575 m (5' 2") 07/25/23 1.575 m (5' 2") General: alert, healthy, and no distress Head: Normocephalic, No masses, lesions, tenderness or abnormalities Eye Exam: PERRLA, extraocular movements intact, conjunctiva are pink and non- injected, sclera clear Heart: regular rate & rhythm, no murmur, no gallops, S-1 normal, and S-2 normal Lungs: chest symmetric with normal AP diameter, no chest deformities noted, no chest wall tenderness, lungs clear to auscultation Extremities: less than 2 second capillary refill, no joint deformities, effusion, or inflammation Assessment and Plan Proliferative diabetic retinopathy of both eyes with macular edema associated with type 2 diabetes mellitus (HCC) (Primary) - ADULT/PEDS OPHTHALMOLOGY/OPTOMETRY REFERRAL OP - Levemir FlexPen 100 UNIT/ML Subcutaneous Solution Pen-injector (Insulin Detemir); Inject 20 Unitsunder the skin every night at bedtime. 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 - BD Pen Needle Theresa U/F 32G X 4 MM (Insulin Pen Needle); Use with levemir daily - HEMOGLOBIN A1C; Future; Expected date: 07/24/2024 - COMPREHENSIVE METABOLIC PANEL; Future; Expected date: 07/24/2024 - ALBUMIN / CREATININE RATIO, URINE; Future; Expected date: 07/24/2024 HTN, goal below 140/90 - COMPREHENSIVE METABOLIC PANEL; Future; Expected date: 07/24/2024 - ALBUMIN / CREATININE RATIO, URINE; Future; Expected date: 07/24/2024 Check-out note: Opth local - needs Saturday appt - [facility] how important it is for her to control bg Will try to find local ophth so she can continue her Avastin - has been since January since last shots Discussion with patient of risk and benefit of medication. also discussion of common side affects. patient counseled and is aware and wishes to purse this medication, agrees to call with any issues or concerns. Wrap-Up Time: I spent a total of 30-39 minutes (exact time 39 mins) on the date of service in preparation, delivery, and documentation of the care provided to Gladis Cevallos excluding any time spent in the performance of separately billed services. Milvia Levy PA-C 07/24/2024 12:38 PM documented in this encounter Nursing Notes * Ruby Mariscal LPN - 07/24/2024 12:16 PM EDT Gladis Cevallos is a 59 year old female who presents today for Chief Complaint Patient presents with Follow Up Pt states that she is here for a follow up documented in this encounter Plan of Treatment Upcoming Encounters Date Type Department Care Team (Late st Contact Info) Description 08/06/2024 8:30 AM EDT Office Visit Ophthalmology, [facility] [address] [place] [address] Zaheer Cardoza DO [address] [place] [id number] Scheduled Orders Name Type Priority Associated Diagnoses Orde r Schedule HEMOGLOBIN A1C Lab Routine Type 2 diabetes mellitus with hemoglobin A1c goal of less than 7.0% (HCC) Expected: 07/24/2024 (Approximate), Expires: 07/24/2025 COMPREHENSIVE METABOLIC PANEL Lab Routine Type 2 diabetes mellitus with hemoglobin A1c goal of less than 7.0% (HCC) HTN, goal below 140/90 Expected: 07/24/2024 (Approximate), Expires: 07/24/2025 ALBUMIN / CREATININE RATIO, URINE Lab Routine Type 2 diabetes mellitus with hemoglobin A1c goal of less than 7.0% (HCC) HTN, goal below 140/90 Expected: 07/24/2024 (Approximate), Expires: 07/24/2025 Scheduled Referrals Name Type Priority Associated Diagnoses Orde r Schedule ADULT/PEDS OPHTHALMOLOGY/OPTO METRY REFERRAL OP Referral Within 30 days (routine) Proliferative diabetic retinopathy of both eyes with macular edema associated with type 2 diabetes mellitus (HCC) 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, with macular edema, with proliferative retinopathy (HCC) Non compliance w medication regimen Ordered: 07/24/2024 Health Maintenance Due Date Last Done Comments [...] with type 2 diabetes mellitus (HCC)- Primary 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, with macular edema, with proliferative retinopathy (HCC) Non compliance w medication regimen Personal history of noncompliance with medical treatment, presenting hazards to health Mammogram declined Surgical or other procedure not carried out because of patient's decision Colonoscopy refused Surgical or other procedure not carried out because of patient's decision Type 2 diabetes mellitus with hemoglobin A1c goal of less than 7.0% (HCC) HTN, goal below 140/90 Unspecified essential hypertension documented in this encounter Care Teams Evening Anchor Relationship Specialty Start Date End Date Milvia Levy PA-C [address] [facility] [address] PCP - General Physician Tip Length Checker 01/24/24 documented as of this encounter
--- OUTSIDE RECORDS SUMMARY | 2024-10-08 03:15 | External Medical Summary | Summary of Care ---
Author Name Unknown Organization [facility] Address [address] [facility] [place] [address] Phone [phone] Care Team Providers Care Sand Slinger Name Role Phone Milvia Levy PA-C Primary Care Provider [phone] Encounter Details Date Type Department Care Team (Late st Contact Info) Description 07/28/2024 Orders Only PATIENT PORTAL DO NOT DELETE THIS DEPT USED BY [place] [id number] Allergies No known active allergiesdocumented as of this encounter (statuses as of 07/28/2024) Medications Medication Sig Dispensed Refills Start Date [...] goal of less than 7.0% ([facility]) Use with levemir daily 90 Each 1 07/24/2024 Active documented as of this encounter (statuses as of 07/28/2024) Active Problems Problem Noted Date Diagnosed Date [...] as of this encounter (statuses as of 07/28/2024) Immunizations Name Administration Dates Next Due COVID-19 [...] 08/06/2024 8:30 AM EDT Office Visit Ophthalmology, [facility] [address] [place] [address] Zaheer Cardoza DO [address] [place] [address] Health Maintenance Due Date Last Done Comments [...] filedocumented as of this encounter Care Teams Sand Slinger Relationship Specialty Start Date End Date Milvia Levy PA-C [address] [place] [address] PCP - General Physician Business Performance Manager 01/24/24 documented as of this encounter
--- OUTSIDE RECORDS SUMMARY | 2024-10-08 03:15 | External Medical Summary | Summary of Care ---
Author Name Unknown Organization [facility] Address [address] [place] [address] Phone [phone] Care Team Providers Care Parachute Officer Name Role Phone Milvia Levy PA-C Primary Care Provider [phone] [phone] Reason for Visit * Reason Onset Date Comments Pre Cert/Prior Auth 03/02/2024 Medication Question 03/02/2024 Encounter Details Date Type Department Care Team (Late st Contact Info) Description 03/02/2024 Telephone [facility] [address] [place] [address] Milvia Levy PA-C [address] [place] [address] Pre Cert/Prior Auth; Medication Question Allergies No known active allergiesdocumented as of this encounter (statuses as of 06/29/2024) Medications Medication Sig Dispensed Refills Start Date End Date Status aspirin enteric coated 81 MG TBEC Take 1 Tablet by mouth in the morning. 100 Tab 3 07/23/2018 Active OneTouch UltraSoft LancetsIndication s:Type 2 diabetes mellitus with hemoglobin A1c goal of less than 7.0% ([facility]) Use as directed 4 times a day [...] before bedtime. 10 mL 4 07/12/2023 Active BD Pen Needle Theresa U/F 32G X 4 MM (Insulin Pen Needle)Indication s:Non compliance w medication regimen,Type 2 diabetes mellitus with hemoglobin A1c goal of less than 7.0% (HCC) Use with ozempic. 12 Each 1 07/25/2023 Active Ofloxacin 0.3 % Ophthalmic Solution (Ocuflox) [...] of meals. 270 Tablet 1 01/24/2024 Active Ozempic (0.25 or 0.5 MG/DOSE) 2 MG/3ML Solution Pen-injector (Semaglutide(0.25 or 0.5MG/DOS))Indica tions:Type 2 diabetes mellitus with hemoglobin A1c goal of less than 7.0% ([facility]) Inject 0.5 mg under the skin once a week. 9 mL 1 01/24/2024 Active Magnesium 400 MG Oral TabletIndications :Leg cramps Take 1 Tablet by mouth at bedtime. 100 Tablet 1 01/24/2024 Active Magnesium Oxide -Mg Supplement 400 (240 Mg) MG Oral Tablet (Mag-Ox) TAKE 1 TABLET BY MOUTH EVERYDAY AT BEDTIME 01/24/2024 Active documented as of this encounter (statuses as of 06/29/2024) Active Problems Problem Noted Date Diagnosed Date [...] as of this encounter (statuses as of 06/29/2024) Immunizations Name Administration Dates Next Due COVID-19 [...] encounter Miscellaneous Notes * Telephone Encounter - Marco Grady OSA - 06/29/2024 4:26 PM EDT Patient called and was asking about her Ozempic injection and was it called in yet to her [facility]. I told her that we just received the authorization for this medication. Please advise. * Telephone Encounter - Ruby Mariscal LPN - 03/06/2024 12:37 PM EDT Pts Ozempic has been approved. Approved number: [id number] * Telephone Encounter - Ileana Tomlinson LPN - 03/02/2024 3:02 PM EDT Prior auth started for Ozempic via [facility] ROSS# [id number] documented in this encounter Plan of Treatment Upcoming Encounters Date Type Department Care Team (Late st Contact Info) Description 07/24/2024 12:20 PM EDT Office Visit [facility] [address] [facility] [place] [place] [address] Milvia Levy PA-C [address] [place] [address] Health Maintenance Due Date Last Done Comments [...] 1 12/17/2018, 09/17/2018 COVID-19 Vaccine ( season) 2023 11/19/2021, 05/13/2021, 04/15/2021 Influenza Vaccine (FLU shot) [...] 07/25/2027 07/25/2022, 05/04, 11/02/2020, Additional history exists DTaP,Tdap,and Td Vaccines (2 - Td or Tdap) 05/02/2030 05/02/2020 HPV (Gardasil) Vaccine Aged Out No lo nger eligible based on patient's age to complete this topic MENINGOCOCCAL (MENACTRA/MENVEO) Aged Out No longer eligible based on patient's age to complete this topic documented as of this encounter Medical Devices Not on filedocumented as of this encounter Care Teams Parachute Officer Relationship Specialty Start Date End Date Milvia Levy PA-C [address] [facility] [place] [place] [address] PCP - General Physician Clerk Telegraph Service 01/24/24 documented as of this encounter
--- OUTSIDE RECORDS SUMMARY | 2024-10-08 03:15 | External Medical Summary | Summary of Care ---
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, with macular edema, with proliferative retinopathy (HCC) Non compliance w medication regimen Milvia Levy PA-C [address] [place] [address] Referral ID Status Reason Start Date Expiration Date Visits Requested Visits Authorized [id number] Authorized Specialty Services Required 07/24/[phone] Encounter Details Date Type Department Care Team (Late st Contact Info) Description 08/06/2024 8:30 AM EDT Office Visit Ophthalmology, [facility] [address] [place] [address] Zaheer Cardoza, [address] [place] [address] 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 3 Each 3 07/24/2024 Active BD Pen Needle Theresa U/F 32G X 4 MM (Insulin Pen Needle)Indication s:Proliferative diabetic retinopathy of both eyes with macular edema associated with type 2 diabetes mellitus ([facility]),Non compliance w medication regimen,Type 2 diabetes mellitus with hemoglobin A1c goal of less than 7.0% ([facility]) Use with levemir daily 90 Each 1 07/24/2024 Active Dorzolamide HCl-Timolol Mal 2-0.5 % Ophthalmic Solution (Cosopt) Instill 1 Drop into both eyes in the morning and 1 Drop before bedtime. 10 mL 4 08/06/2024 Active Dorzolamide HCl-Timolol Mal 22.3-6.8 MG/ML Ophthalmic Solution (Cosopt) Instill 1 Drop into both eyes in the morning and 1 Drop before bedtime. 10 mL 4 07/12/2023 Discontinu ed(Refill) Hospital, Clinic, or Other Facility Administered Medication [...] as of this encounter (statuses as of 08/06/2024) Active Problems Problem Noted Date Diagnosed Date [...] as of this encounter (statuses as of 08/06/2024) Immunizations Name Administration Dates Next Due COVID-19 [...] Progress Notes * Zaheer Cardoza DO - 08/06/2024 8:30 AM EDT [facility] [place] Nursing Notes: Chantal Wu TECH 08/06/24 0834 Signed Gladis Cevallos is a 59 year old year old female referred by Dr. Magaña to evaluate for PDR OU with edema. Patient's name preference, 'Diana'. Patient currently states unsure if there have been vision changes Have you ever had any major surgery of serious injury of or around the eyes- no Are you diabetic? Yes. Do you check your blood sugars daily? YES. Fasting BS this mornin mg/dl. Last Hemoglobin A1C: Lab Results Component Value Date/Time HGBA1C 12.7 (H) 01/24/2024 12:16 PM HGBA1C 9.5 (H) 07/25/2023 12:18 PM HGBA1C 14.1 (H) 01/22/2023 12:14 PM HGBA1C 8.7 (H) 11/02/2020 12:15 PM HGBA1C 8.3 (H) 05/02/2020 04:10 PM HGBA1C 6.9 (H) 10/16/2019 04:08 PM FAMILY HISTORY: Family History Problem Relation Name Age of Onset Hypertension Mother Other (Other, car accident) Father Heart Disorder Grandmother (Maternal) Hypertension Grandmother (Maternal) Stroke Grandmother (Maternal) Diabetes Aunt (Unspecified) Diabetes Uncle (Unspecified) Diabetes Uncle (Unspecified) Cancer Other SOCIAL HISTORY: Social History Tobacco Use Smoking status: Never Smokeless tobacco: Never Vaping Use Vaping status: Never Used Substance Use Topics Alcohol use: No Drug use: No PMH: Past Medical History: Diagnosis Date Both eyes affected by proliferative diabetic retinopathy and macular edema (HCC) DM type 2, goal A1c below 7 1994 HTN, goal below 140/90 1998 Patient Active Problem List Diagnosis BENIGN HYPERTENSION PURE HYPERCHOLESTEROLEM Type 2 diabetes mellitus with hemoglobin A1c goal of less than 7.0% ([facility]) 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 no OCT image(s), fundus of both eyes acquired and filed/scanned into chart. Base Eye Exam Visual Acuity (Snellen - Linear) Right Left Dist cc 20/40 -1 20/150 -1 Dist ph cc 20/80 -2 Correction: Glasses Tonometry (Tonopen, 8:31 AM) Right Left Pressure 14 17 Pupils Dark Shape APD Right 3.5 Round Trace Left 3.5 Round Trace Visual Vyas (Counting fingers) Right Left Restrictions Partial outer superior nasal, inferior nasal deficiencies Partial outer superior temporal, superior nasal deficiencies Extraocular Movement Right Left Full, Ortho Full, Ortho Neuro/Psych Oriented x3: Yes Mood/Affect: Normal Dilation Both eyes: 0.5% Proparacaine @ 8:29 AM Dilation #2 Both eyes: 1.0% Mydriacyl, 2.5% Phenylephrine @ 8:30 AM Dilation #3 Both eyes: 1.0% Mydriacyl @ 8:34 AM Dilation Comments Patient cautioned that effects of dilation may last 2-7 hours dependant upon individual reaction. It was discussed that driving while dilated is not recommended. EXTERNAL: The ocular adnexae are unremarkable. SLE: Lids/Lashes: wnl OU Conjunctiva/Sclera: quiet OU Cornea: clear OU Anterior Chamber: deep and quiet OU Iris: normal OU; no NVI OD; +NVI OS Lens: 1-2+mixed cataracts OU Dilated fundus exam OD: vitreous: clear optic nerve: 0.2, no edema/pallor, regressed NVD macula: vp genetic vessels: wnl periphery: PRP, vp genetic, no RT/RD Dilated fundus exam OS: vitreous: VH optic nerve: NVD/fibrosis macula: vp genetic vessels: wnl periphery: PRP, vp genetic, no RT/RD Faint choroidal nevus in the nasal periphery with overlying drusen. Flat. Measures approximately 2.8 mm x 3.6 mm. OCT Interpretation: OD: +dme OS: +dme A/P: 1. Proliferative Diabetic Retinopathy/NVG OU -s/p PRP Tuller -s/p Avastin OU (last 01/31/24 [place]uller) -08/06/2024 ; stable DME, +new NVI OS -Avastin OS -recommend HgbA1C <7, BP and lipid control. Continue: Cosopt 1 drop 2 times a day both eyes 2. Choroidal nevus OS -low risk -monitor 3. Cataracts OU -monitor F/u 4-6 weeks, OCT OU Zaheer Cardoza DO CC: Milvia Levy PA-C CC: PCP: Milvia Levy PA-C TIMEOUT PROCEDURE: correct patient identity-YES correct procedure and consent-YES verified side and site-YES correct patient position-YES all necessary equipment/prior studies present-YES reviewed special requirements of this patient-YES PROCEDURE: Intravitreal injection of Avastin 1.25mg OS INFORMED CONSENT: Patient is aware that this [...] encounter Nursing Notes * Kathrine Hayward MED SOFIA - 08/06/2024 9:15 AM EDT Gladis Cevallos to receive 38 Avastin 1.25mg Injection of the Left eye. Correct eye confirmed with patient and marked by Zaheer Cardoza DO Avastin 1.25mg lot # [id number] Exp. Date: 08/09/24 * Chantal Wu TECH - 08/06/2024 8:19 AM EDT Gladis Cevallos is a 59 year old year old female referred by Dr. Magaña to evaluate for PDR OU with edema. Patient's name preference, 'Diana'. Patient currently states unsure if there have been vision changes Have you ever had any major surgery of serious injury of or around the eyes- no Are you diabetic? Yes. Do you check your blood sugars daily? YES. Fasting BS this mornin mg/dl. Last Hemoglobin A1C: Lab Results Component Value Date/Time HGBA1C 12.7 (H) 01/24/2024 12:16 PM HGBA1C 9.5 (H) 07/25/2023 12:18 PM HGBA1C 14.1 (H) 01/22/2023 12:14 PM HGBA1C 8.7 (H) 11/02/2020 12:15 PM HGBA1C 8.3 (H) 05/02/2020 04:10 PM HGBA1C 6.9 (H) 10/16/2019 04:08 PM FAMILY HISTORY: Family History Problem Relation Name Age of Onset Hypertension Mother Other (Other, car accident) Father Heart Disorder Grandmother (Maternal) Hypertension Grandmother (Maternal) Stroke Grandmother (Maternal) Diabetes Aunt (Unspecified) Diabetes Uncle (Unspecified) Diabetes Uncle (Unspecified) Cancer Other SOCIAL HISTORY: Social History Tobacco Use Smoking status: Never Smokeless tobacco: Never Vaping Use Vaping status: Never Used Substance Use Topics Alcohol use: No Drug use: No PMH: Past Medical History: Diagnosis Date Both eyes affected by proliferative diabetic retinopathy and macular edema (HCC) DM type 2, goal A1c below 7 1994 HTN, goal below 140/90 1998 Patient Active Problem List Diagnosis BENIGN HYPERTENSION PURE HYPERCHOLESTEROLEM Type 2 diabetes mellitus with hemoglobin A1c goal of less than 7.0% (HCC) 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 no OCT image(s), fundus of both eyes acquired and filed/scanned into chart. documented in this encounter Plan of Treatment Scheduled Orders Name Type Priority Associated Diagnoses Orde r Schedule RETINA SCAN DIAGNOSTIC IMAGE, POSTERIOR Procedures Routine Proliferative diabetic retinopathy of both eyes with macular edema associated with type 2 diabetes mellitus (HCC) Ordered: 08/06/2024 FUNDUS PHOTOGRAPHY Procedures Routine Proliferative diabetic retinopathy of both eyes with macular edema associated with type 2 diabetes mellitus (HCC) Ordered: 08/06/2024 Health Maintenance Due Date Last Done Comments [...] with macular edema, with proliferative retinopathy (HCC) [E13.3519, H42, E13.39] documented in this encounter Care Teams Teacher Hearing Impaired Relationship Specialty Start Date End Date Milvia Levy PA-C [address] [facility] [place] [address] PCP - General Physician Elementary Reading Specialist 01/24/24 documented as of this encounter
--- OUTSIDE RECORDS SUMMARY | 2024-10-08 03:15 | External Medical Summary | Summary of Care ---
Author Name Unknown Organization [facility] Address [address] [place] [address] Phone [phone] Care Team Providers Care Rectification Printer Name Role Phone Milvia Levy PA-C Primary Care Provider [phone] Reason for Visit * Reason Onset Date Comments Pre Cert/Prior Auth 03/02/2024 Medication Question 03/02/2024 Encounter Details Date Type Department Care Team (Late st Contact Info) Description 03/02/2024 Telephone [facility] [address] [place] [address] Milvia Levy PA-C [address] [place] [address] Pre Cert/Prior Auth; Medication Question Allergies No known active allergiesdocumented as of this encounter (statuses as of 06/30/2024) Medications Medication Sig Dispensed Refills Start Date End Date Status aspirin enteric coated 81 MG TBEC Take 1 Tablet by mouth in the morning. 100 Tab 3 07/23/2018 Active OneTouch UltraSoft LancetsIndication s:Type 2 diabetes mellitus with hemoglobin A1c goal of less than 7.0% ([facility]) Use as directed 4 times a day [...] goal of less than 7.0% ([facility]) Inject 0.5 mg under the skin once a week. 9 mL 1 01/24/2024 Active Magnesium 400 MG Oral TabletIndications :Leg cramps Take 1 Tablet by mouth at bedtime. 100 Tablet 1 01/24/2024 Active Magnesium Oxide -Mg Supplement 400 (240 Mg) MG Oral Tablet (Mag-Ox) TAKE 1 TABLET BY MOUTH EVERYDAY AT BEDTIME 01/24/2024 Active documented as of this encounter (statuses as of 06/30/2024) Active Problems Problem Noted Date Diagnosed Date [...] as of this encounter (statuses as of 06/30/2024) Immunizations Name Administration Dates Next Due COVID-19 [...] as of this encounter Miscellaneous Notes * Addendum Note - Nisreen Holt LPN - 06/30/2024 8:46 AM EDTAddended by: NISREEN HOLT on: 06/30/2024 08:46 AM Modules accepted: Orders * Telephone Encounter - Nisreen Holt LPN - 06/30/2024 8:45 AM EDT Order pended and pharmacy selected please sign if agreeable. * Telephone Encounter - Marco Grady OSA - 06/29/2024 4:26 PM EDT Patient called and was asking about her Ozempic injection and was it called in yet to her [facility]. I told her that we just received the authorization for this medication. Please advise. * Telephone Encounter - Ruby Mariscal LPN - 03/06/2024 12:37 PM EDT Pts Ozempic has been approved. Approved number: [id number] * Telephone Encounter - Ileana Tomlinson LPN - 03/02/2024 3:02 PM EDT Prior auth started for Ozempic via [facility] ROSS# [id number] documented in this encounter Plan of Treatment Upcoming Encounters Date Type Department Care Team (Late st Contact Info) Description 07/24/2024 12:20 PM EDT Office Visit [facility] [address] [place] [address] Milvia Levy PA-C [address] [place] [address] Health Maintenance Due Date Last Done Comments [...] as of this encounter Visit Diagnoses Diagnosis Type 2 diabetes mellitus with hemoglobin A1c goal of less than 7.0% (HCC) documented in this encounter Care Teams Rectification Printer Relationship Specialty Start Date End Date Milvia Levy PA-C [address] [place] [address] PCP - General Physician Utilization Review Specialist 01/24/24 documented as of this encounter
--- OUTSIDE RECORDS SUMMARY | 2024-10-08 03:15 | External Medical Summary | Summary of Care ---
Author Name Unknown Organization [facility] Address [address] [place] [address] Phone [phone] Care Team Providers Care Clerk Analyst Name Role Phone Milvia Levy PA-C Primary Care Provider [phone] Reason for Visit * Reason Onset Date Comments Pre Cert/Prior Auth 03/02/2024 Medication Question 03/02/2024 Encounter Details Date Type Department Care Team (Late st Contact Info) Description 03/02/2024 Telephone [facility] [address] [place] [address] Milvia Levy PA-C [address] [place] [address] Pre Cert/Prior Auth; Medication Question [...] BY MOUTH EVERYDAY AT BEDTIME 01/24/2024 Active Ozempic (0.25 or 0.5 MG/DOSE) 2 MG/3ML Solution Pen-injector (Semaglutide(0.2 5 or 0.5MG/DOS))Indic ations:Type 2 diabetes mellitus with hemoglobin A1c goal of less than 7.0% (HCC) Inject 0.5 mg under the skin once a week. 9 mL 1 06/30/2024 Active Ozempic (0.25 or 0.5 MG/DOSE) 2 MG/3ML Solution Pen-injector (Semaglutide(0.2 5 or 0.5MG/DOS))Indic ations:Type 2 diabetes mellitus with hemoglobin A1c goal of less than 7.0% (HCC) Inject 0.5 mg under the skin once a week. 9 mL 1 01/24/2024 Discontinue d(Refill) documented as of this encounter [...] encounter Miscellaneous Notes * Addendum Note - Milvia Levy PA-C - 06/30/2024 10:36 AM EDTAddended by: MILVIA LEVY on: 06/30/2024 10:36 AM Modules accepted: Orders * Addendum Note - Nisreen Holt LPN [...] was it called in yet to her [facility]. I told her that we just received the authorization for this medication. Please advise. * Telephone Encounter - Ruby Mariscal LPN - 03/06/2024 12:37 PM EDT Pts Ozempic has been approved. Approved number: [id number] * Telephone Encounter - Ileana Tomlinson LPN - 03/02/2024 3:02 PM EDT Prior auth started for Ozempic via [facility] ROSS# [id number] documented in this encounter Plan of Treatment Upcoming Encounters Date Type Department Care Team (Late st Contact Info) Description 07/24/2024 12:20 PM EDT Office Visit [facility] [address] [place] [id number] Milvia Levy PA-C [address], [place] [id number] Health Maintenance Due Date Last Done Comments [...] (HCC) documented in this encounter Care Teams Clerk Analyst Relationship Specialty Start Date End Date Milvia Levy PA-C [address] [facility] [place] [address] PCP - General Physician Rug Sizer 01/24/24 documented as of this encounter
--- OUTSIDE RECORDS SUMMARY | 2024-10-08 03:15 | External Medical Summary | Summary of Care ---
Author Name Unknown Organization [facility] Address [address] [place] [address] Phone [phone] Care Team Providers Care Special Delivery Clerk Name Role Phone Milvia Levy PA-C Primary Care Provider [phone] Reason for Visit * Reason Comments NEW [...] compliance w medication regimen Milvia Levy PA-C [address] [place] [address] Referral ID Status Reason Start Date Expiration Date Visits Requested Visits Authorized [id number] Authorized Specialty Services Required 07/24/[phone] Encounter Details Date Type Department Care Team (Late st Contact Info) Description 08/06/2024 8:30 AM EDT Office Visit Ophthalmology, [facility] [address] [place] [id number] Zaheer Cardoza, [address] [place] [address] Proliferative diabetic retinopathy of both eyes with [...] edema associated with type 2 diabetes mellitus ([facility]),Type 2 diabetes mellitus with hemoglobin A1c goal of less than 7.0% ([facility]) Inject 20 Units under the skin every night at bedtime. 3 Each 3 07/24/2024 Active BD Pen Needle Theresa U/F 32G X 4 MM (Insulin Pen Needle)Indication s:Proliferative diabetic retinopathy of both eyes with macular edema associated with type 2 diabetes mellitus ([facility]),Non compliance w medication regimen,Type 2 diabetes mellitus with hemoglobin A1c goal of less than 7.0% ([facility]) Use with levemir daily 90 Each 1 [...] Cardoza DO - 08/06/2024 8:30 AM EDT [facility] [place] Nursing Notes: Chantal [...] less than 7.0% ([facility]) Proliferative diabetic retinopathy of both eyes with [...] nerve: 0.2, no edema/pallor, regressed NVD macula: diving board assembler vessels: wnl periphery: PRP, diving board assembler, no RT/RD Dilated fundus exam OS: vitreous: VH optic nerve: NVD/fibrosis macula: diving board assembler vessels: wnl periphery: PRP, diving board assembler, no RT/RD Faint choroidal nevus in the [...] Zaheer Cardoza DO Avastin 1.25mg lot # [id number] Exp. Date: 08/09/24 * Chantal Wu TECH [...] 09/09/2024 2:30 PM EST Office Visit Ophthalmology, [facility] [address] [place] [address] Zaheer Cardoza DO [address] [place] [id number] Scheduled Orders Name Type Priority Associated Diagnoses [...] 11/02/2020, Additional history exists HbA1c 07/26/2024 01/24/2024, 09/2 11/2022, 01/22/2023, Additional history exists Albumin/Creatinine Ratio 01/23/2025 [...] [E13.3519, H42, E13.39] documented in this encounter Administered Medications Active Administered Medications - up to 3 most recent administrations Medication Order MAR Action Action Date Dose Rate Site bevaCIZumab (Avastin) inj 1.25 mg 1.25 mg, Intravitreal, PRN Other, Starting on Leeanna 08/06/24 at 0928, Until Sat08/06/25 at 0927, For 365 days Given 08/06/2024 10:55 AM EDT 1.25 mg Eye Left ROPivacaine (Naropin) inj 1.5 mg 1.5 mg, Injection, PRN Other, Starting on Leeanna 08/06/24 at 0928, Until Sat08/06/25 at 0927, For 365 days Given 08/06/2024 10:55 AM EDT 1.5 mg Eye Left documented in this encounter Care Teams Special Delivery Clerk Relationship Specialty Start Date End Date Milvia Levy PA-C [address] [place] [address] PCP - General Physician Transit Mechanic 01/24/24 documented as of this encounter
[2024-10-08 07:22] LABS: Hemoglobin 10.7 g/dl (12.0-16.0); Mean Corpuscular Hemoglobin 29.1 pg (25.0-34.0); Mean Corpuscular Hgb Conc 33.4 g/dL (32.0-36.0); Mean Platelet Volume 10.3 fL (9.4-12.4); Platelet Count 235 K/uL (130-400); RDW Coefficient of Variation 12.9 % (11.5-14.5); RDW Standard Deviation 41.1 fL (36.4-46.3); Red Blood Count 3.68 M/uL (4.20-5.40); White Blood Count 8.61 K/ul (4.8-10.8)
[2024-10-08] MEDS: LANTUS PER UNIT CHARGE SC ONE (08:50)
--- NOTE | 2024-10-08 15:04 | Pharmacy Report ---
Pharmacy Glycemic Short Note 2 - Date of Service October 08, 2024 - Glycemic Short BSG Results (Last 24 hours): 10/07/24 10/07/24 10/08/24 16:08 20:20 07:59 POC Glucose 234 H 240 H 205 H 10/08/24 10:50 POC Glucose 296 H OUTPATIENT ANTIDIABETIC REGIMEN: * Levemir 20 units SQ q HS * Ozempic 0.5mg SQ weekly * metformin 1000mg po bid HbA1c > 16.9% on 10/07/24 ASSESSMENT: 10/08: * Gladis received 40 units of SQ insulin yesterday (15 units basal + 26 units bolus) with BSG trending up throughout the day (146, 156, 234, 240). * Persistent hyperglycemia today as well. Fasting BSG > 200 mg/dL. Will increase basal dose to weight/stress 2. * Will also tighten carb coverage. Hesitant to make significant change to both basal and bolus insulin given Novolog parameters are already at stress of 3. Suspect persistent BSG elevation is more likely due to basal insulin deficiency. Will add overnight checks. 10/07 * 59 year old female admitted last evening for hyperglycemia likely induced by a UTI. [facility] BSG on admit was 759mg/dL, this is not likely HHS as the effective serum osmolality is < 320. (Na was 127) * A 10unit regular insulin bolus was given yesterday afternoon and then a regular insulin drip was started at 0.1 units/kg/hr. BSGs quickly decreased and at bedtime BSG was 126mg/dL. * The insulin drip was transitioned to SQ insulin last evening. 15 units of lantus were given last night and a weight based bolus insulin regimen with a stress of 3 was started. * BSGs have remained better controlled today so far. Fasting BSG was 146 this morning. * Lantus 15units q HS will be continued and as will the bolus insulin with the parameters started last evening. * She continues on ceftriaxone for the treatment of her UTI. PLAN FOR INPATIENT GLYCEMIC CONTROL: * Hold outpatient diabetes medications * Basal insulin * Lantus 15 units SQ BID * Reassess 12/6 AM * Bolus insulin * NovoLog per scale ACHS or Q6hrs while NPO * Goal Range: Low 110 mg/dL - High 140 mg/dL * Correction Factor: 20 mg/dL/unit * Nutritional / Prandial insulin per carb ratio of 1 unit per 7 grams CHO consumed
--- NOTE | 2024-10-08 16:12 | Hospitalist Progress Note ---
Date of Service October 08, 2024 Assessment & Plan (1) Diabetes mellitus with hyperosmolarity without hyperglycemic hyperosmolar nonketotic coma: (2) Urinary tract infection: Plan: E. coli (3) Deep vein thrombosis, lower right extremity: (4) Diabetic peripheral neuropathy associated with type 2 diabetes mellitus: (5) Diabetes type 2, uncontrolled: (6) Glaucoma: Plan Patient is a 59-year-old female with past medical history of diabetes mellitus who presented to the hospital with confusion. Hyperosmolar hyperglycemic state Acute UTI Uncontrolled type 2 diabetes mellitus Acute right lower extremity DVT Patient presented with glucose of 759 and confusion Urinalysis suggestive of infection HbA1c is greater than 16.9% Urine culture growing E. coli Venous duplex positive for DVT in right superficial femoral vein. Continue insulin as per pharmacy; high school art teacher on board. Continue on Eliquis for DVT Continue antibiotic for acute UTI PT OT ordered; patient might benefit from rehab. Time spent evaluating patient, direct bedside care, chart review, placing orders, interpretation of diagnostic studies, discussion with consultants, patient, and family members, as well as other required patient management activities is 50 minutes Please note the above document was generated using voice recognition software. It may contain grammatical, syntax or spelling errors. Any formal questions or concerns about the content, text or information contained within the body of this dictation should be directly addressed to the provider for clarification Admission and Anticipated Discharge Date Admission Date: October 06, 2024 Subjective Patient seen and examined at bedside. She is sitting up on a chair at side of the bed; not in distress. She reports that she takes insulin by herself. Spoke with her daughter over the phone; daughter is unsure if patient is compliant with insulin or not. She reported that she will ensure patient will take insulin at home. Review of Systems Review of Systems: All systems reviewed & are unremarkable except as noted in Subjective Physical Exam Physical Exam: Constitutional: Awake, alert oriented x 3; not in distress. Respiratory: Bilateral vesicular breath sound. Cardiovascular: RRR, no murmur, no edema Vessels: no JVD or carotid bruit Chest: normal inspection of chest Abdomen: normal bowel sounds, soft, nontender, no hepatosplenomegaly Musculoskeletal: no cyanosis or clubbing, extremities motor strength 5/5 Skin: no rashes, warm and dry normal turgor Neurologic: PERRL, EOMI, accommodation nl, no face palsy, no dysarthria CN's II- XI intact bilaterally and moves all extremities Psychiatric: A+Ox3, euthymic affect Results & Data Results & Data Vital Signs (Past 12 Hours) Vital Signs Temp Pulse Resp BP Pulse Ox O2 Del Method 10/08/24 15:37 36.7 C 71 18 134/83 97 Room Air 10/08/24 10:52 36.6 C 81 18 142/84 H 97 Room Air 10/08/24 08:01 36.7 C 73 18 132/82 94 Room Air (2) Urinary tract infection Hematuria presence: with hematuria Urinary tract infection type: acute cystitis Qualified Code(s): N30.01 - Acute cystitis with hematuria
[2024-10-08] MEDS: LANTUS PER UNIT CHARGE SC SCH (22:11)
[2024-10-08] MEDS: INSULIN ASPART PER UNIT CHARGE SC SCH (23:55)
[2024-10-09] MEDS: MICONAZOLE NITRATE POWDER 85 GM EXT PRN (04:04)
[2024-10-09 07:41] LABS: Basophils # (auto) 0.03 K/uL (0.00-0.20); Basophils % (auto) 0.4 %; Eosinophils # (auto) 0.14 K/uL (0.00-0.50); Eosinophils % (auto) 2.1 %; Hematocrit (blood only) 32.5 % (37.0-47.0); Hemoglobin 10.8 g/dl (12.0-16.0); Immature Granulocytes # (auto) 0.02 K/uL (0.01-0.20); Immature Granulocytes % (auto) 0.3 %; Lymphocytes % (auto) 31.1 %; Mean Corpuscular Hgb Conc 33.2 g/dL (32.0-36.0); Mean Corpuscular Volume 87.1 fL (80.0-100.0); Mean Platelet Volume 9.9 fL (9.4-12.4); Monocytes # (auto) 0.53 K/uL (0.11-0.59); Monocytes % (auto) 7.9 %; Neutrophils # (auto) 3.93 K/uL (1.40-6.50); Neutrophils % (auto) 58.2 %; Platelet Count 240 K/uL (130-400); RDW Coefficient of Variation 12.6 % (11.5-14.5); RDW Standard Deviation 40.5 fL (36.4-46.3); Red Blood Count 3.73 M/uL (4.20-5.40); White Blood Count 6.75 K/ul (4.8-10.8)
[2024-10-09] MEDS: LANTUS PER UNIT CHARGE SC SCH (08:47)
--- NOTE | 2024-10-09 09:23 | Hospitalist Progress Note ---
Date of Service October 09, 2024 Assessment & Plan (1) Diabetes mellitus with hyperosmolarity without hyperglycemic hyperosmolar nonketotic coma: (2) Urinary tract infection: Plan: E. coli (3) Deep vein thrombosis, lower right extremity: (4) Diabetic peripheral neuropathy associated with type 2 diabetes mellitus: (5) Diabetes type 2, uncontrolled: (6) Glaucoma: Plan Patient is a 59-year-old female with past medical history of diabetes mellitus who presented to the hospital with confusion. Hyperosmolar hyperglycemic state Acute UTI Uncontrolled type 2 diabetes mellitus Acute right lower extremity DVT Patient presented with glucose of 759 and confusion Urinalysis suggestive of infection HbA1c is greater than 16.9% Urine culture growing E. coli Venous duplex positive for DVT in right superficial femoral vein. Continue insulin as per pharmacy; early childhood special educator on board. Questionable compliance as patient has not picked up any of her home meds including lisinopril/hydrochlorothiazide, metformin and insulin for several months. Continue on Eliquis for DVT Continue antibiotic for acute UTI PT OT ordered; patient might benefit from rehab. Full code DVT prophylaxis eliquis Time spent evaluating patient, direct bedside care, chart review, placing orders, interpretation of diagnostic studies, discussion with consultants, patient, and family members, as well as other required patient management activities is 50 minutes Please note the above document was generated using voice recognition software. It may contain grammatical, syntax or spelling errors. Any formal questions or concerns about the content, text or information contained within the body of this dictation should be directly addressed to the provider for clarification Admission and Anticipated Discharge Date Admission Date: October 06, 2024 Subjective Patient seen and examined at bedside. Comfortable; not in distress. Denies fever, chills, chest pain, shortness of breath, abdominal pain or urinary symptoms. No significant overnight events Review of Systems Review of Systems: All systems reviewed & are unremarkable except as noted in Subjective Physical Exam Physical Exam: Constitutional: Awake, alert oriented x 3; not in distress. Respiratory: Bilateral vesicular breath sound. Cardiovascular: RRR, no murmur, no edema Vessels: no JVD or carotid bruit Chest: normal inspection of chest Abdomen: normal bowel sounds, soft, nontender, no hepatosplenomegaly Musculoskeletal: no cyanosis or clubbing, extremities motor strength 5/5 Skin: no rashes, warm and dry normal turgor Neurologic: PERRL, EOMI, accommodation nl, no face palsy, no dysarthria CN's II- XI intact bilaterally and moves all extremities Psychiatric: A+Ox3, euthymic affect Results & Data Results & Data Vital Signs (Past 12 Hours) Vital Signs Temp Pulse Pulse Resp BP Pulse Ox O2 Del Method 10/09/24 08:04 Room Air 10/09/24 07:21 36.5 C 76 16 143/82 H 94 Room Air 10/09/24 04:06 80 155/76 H 10/08/24 23:56 36.5 C 85 18 172/92 H 96 Room Air 10/08/24 22:33 36.8 C 80 18 138/79 95 Room Air 10/08/24 22:00 Room Air (2) Urinary tract infection Hematuria presence: with hematuria Urinary tract infection type: acute cystitis Qualified Code(s): N30.01 - Acute cystitis with hematuria
[2024-10-09 09:30] LABS: BUN Creatinine Ratio 29.3 (10-20); Calcium 8.3 mg/dl (8.6-10.3); Creatinine Clr Calc Pharmacy 80.7 ml/min; Potassium 4.3 mmol/L (3.5-5.1)
--- NOTE | 2024-10-09 10:00 | Pharmacy Report ---
Pharmacy Glycemic Short Note 2 - Date of Service October 09, 2024 - Glycemic Short BSG Results (Last 24 hours): 10/08/24 10/08/24 10/08/24 10:50 16:49 19:49 Glucose POC Glucose 296 H 131 H 195 H 10/08/24 10/09/24 10/09/24 23:47 03:51 07:13 Glucose 200 H POC Glucose 169 H 181 H 10/09/24 07:23 Glucose POC Glucose 206 H OUTPATIENT ANTIDIABETIC REGIMEN: * Levemir 20 units SQ q HS * Ozempic 0.5mg SQ weekly * metformin 1000mg po bid HbA1c: > 16.9% on 10/07/24 ASSESSMENT: 10/09: * Blood sugars remain labile, ranging 131-296 mg/dL over past 24 hours * Received 64 units of insulin yesterday (20 units of basal and 44 units of prandial/correctional bolus) * Parameters were significantly tightened yesterday, but given significant downtrend of 296 -> 131 and provider concern for hypoglycemia, parameters loosened 10/08: * Gladis received 40 units of SQ insulin yesterday (15 units basal + 26 units bolus) with BSG trending up throughout the day (146, 156, 234, 240). * Persistent hyperglycemia today as well. Fasting BSG > 200 mg/dL. Will increase basal dose to weight/stress 2. * Will also tighten carb coverage. Hesitant to make significant change to both basal and bolus insulin given Novolog parameters are already at stress of 3. Suspect persistent BSG elevation is more likely due to basal insulin deficiency. Will add overnight checks. 10/07 * 59 year old female admitted last evening for hyperglycemia likely induced by a UTI. [facility] BSG on admit was 759mg/dL, this is not likely [facility] as the effective serum osmolality is < 320. (Na was 127) * A 10unit regular insulin bolus was given yesterday afternoon and then a regular insulin drip was started at 0.1 units/kg/hr. BSGs quickly decreased a nd at bedtime BSG was 126mg/dL. * The insulin drip was transitioned to SQ insulin last evening. 15 units of lantus were given last night and a weight based bolus insulin regimen with a stress of 3 was started. * BSGs have remained better controlled today so far. Fasting BSG was 146 this morning. * Lantus 15units q HS will be continued and as will the bolus insulin with the parameters started last evening. * She continues on ceftriaxone for the treatment of her UTI. PLAN FOR INPATIENT GLYCEMIC CONTROL: * Hold outpatient diabetes medications * Basal insulin * Lantus 20 units SC daily * Lantus 0-5-10 units SC HS * Bolus insulin * NovoLog per scale ACHS or Q6hrs while NPO * Goal Range: Low 110 mg/dL - High 140 mg/dL * Correction Factor: 20 mg/dL/unit * Nutritional / Prandial insulin per carb ratio of 1 unit per 7 grams CHO consumed
[2024-10-10 07:30] LABS: Calcium 8.5 mg/dl (8.6-10.3); Creatinine Clr Calc Pharmacy 80.7 ml/min; Potassium 4.1 mmol/L (3.5-5.1)
--- NOTE | 2024-10-10 10:25 | Hospitalist Progress Note ---
Date of Service October 10, 2024 Assessment & Plan (1) Diabetes mellitus with hyperosmolarity without hyperglycemic hyperosmolar nonketotic coma: (2) Urinary tract infection: Plan: E. coli (3) Deep vein thrombosis, lower right extremity: (4) Diabetic peripheral neuropathy associated with type 2 diabetes mellitus: (5) Diabetes type 2, uncontrolled: (6) Glaucoma: Plan Patient is a 59-year-old female with past medical history of diabetes mellitus who presented to the hospital with confusion. Hyperosmolar hyperglycemic state Acute UTI Uncontrolled type 2 diabetes mellitus Acute right lower extremity DVT Patient presented with glucose of 759 and confusion Urinalysis suggestive of infection HbA1c is greater than 16.9% Urine culture growing E. coli Venous duplex positive for DVT in right superficial femoral vein. Continue insulin as per pharmacy; life skills educator on board. Questionable compliance as patient has not picked up any of her home meds including lisinopril/hydrochlorothiazide, metformin and insulin for several months. Continue on Eliquis for DVT. Will need to be on anticoagulation for at least 3 months. Will need age-appropriate cancer screening. Continue antibiotic for acute UTI; plan to treat for 5days PT OT ordered; patient might benefit from rehab. Patient has multiple falls over the last few weeks due to ambulatory dysfunction; she has questionable compliance and has very little support at home. I discussed with her about going to rehab which will enable her to get more physical therapy, help manage her blood glucose in the interim and then go home. I discussed that she is at high risks of falls that could lead into life- threatening injury as she is on blood thinner. Patient verbalized understanding of the risks involved. However, she continued to state that she wants to go home. Discussed with case management about home health; however there is difficulty in arranging that as well due to patient's home location. I discussed my concerns with patient's sister Monet over the phone as well. Full code DVT prophylaxis eliquis DispositionPT OT recommends rehab. However, patient refuses that that and wants to go home Time spent evaluating patient, direct bedside care, chart review, placing orders, interpretation of diagnostic studies, discussion with consultants, patient, and family members, as well as other required patient management activities is 50 minutes Please note the above document was generated using voice recognition software. It may contain grammatical, syntax or spelling errors. Any formal questions or concerns about the content, text or information contained within the body of this dictation should be directly addressed to the provider for clarification Admission and Anticipated Discharge Date Admission Date: October 06, 2024 Subjective Patient seen and examined at bedside. Comfortable; not in distress. Denies fever, chills, chest pain, shortness of breath, abdominal pain or urinary symptoms. No significant overnight events Review of Systems Review of Systems: All systems reviewed & are unremarkable except as noted in Subjective Physical Exam Physical Exam: Constitutional: Awake, alert oriented x 3; not in distress. Respiratory: Bilateral vesicular breath sound. Cardiovascular: RRR, no murmur, no edema Vessels: no JVD or carotid bruit Chest: normal inspection of chest Abdomen: normal bowel sounds, soft, nontender, no hepatosplenomegaly Musculoskeletal: no cyanosis or clubbing, extremities motor strength 5/5 Skin: no rashes, warm and dry normal turgor Neurologic: PERRL, EOMI, accommodation nl, no face palsy, no dysarthria CN's II- XI intact bilaterally and moves all extremities Psychiatric: A+Ox3, euthymic affect Results & Data Results & Data Vital Signs (Past 12 Hours) Vital Signs Temp Pulse Resp BP BP Pulse Ox O2 Del Method 10/10/24 08:47 36.7 C 84 16 129/85 97 Room Air 10/10/24 07:28 36.7 C 74 16 125/73 93 Room Air (2) Urinary tract infection Hematuria presence: with hematuria Urinary tract infection type: acute cystitis Qualified Code(s): N30.01 - Acute cystitis with hematuria
[2024-10-11] MEDS: LANTUS PER UNIT CHARGE SC SCH (08:35)
--- NOTE | 2024-10-11 10:06 | Hospitalist Progress Note ---
Date of Service October 11, 2024 Assessment & Plan (1) Diabetes mellitus with hyperosmolarity without hyperglycemic hyperosmolar nonketotic coma: (2) Urinary tract infection: Plan: E. coli (3) Deep vein thrombosis, lower right extremity: (4) Diabetic peripheral neuropathy associated with type 2 diabetes mellitus: (5) Diabetes type 2, uncontrolled: (6) Glaucoma: Plan Patient is a 59-year-old female with past medical history of diabetes mellitus who presented to the hospital with confusion. Hyperosmolar hyperglycemic state Acute UTI Uncontrolled type 2 diabetes mellitus Acute right lower extremity DVT Patient presented with glucose of 759 and confusion Urinalysis suggestive of infection HbA1c is greater than 16.9% Urine culture growing E. coli Venous duplex positive for DVT in right superficial femoral vein. Continue insulin as per pharmacy; clinical document improvement educator on board. Questionable compliance as patient has not picked up any of her home meds including lisinopril/hydrochlorothiazide, metformin and insulin for several months. Continue on Eliquis for DVT. Will need to be on anticoagulation for at least 3 months. Will need age-appropriate cancer screening. Continue antibiotic for acute UTI; plan to treat for 5days PT OT ordered; patient might benefit from rehab. Patient has multiple falls over the last few weeks due to ambulatory dysfunction; she has questionable compliance and has very little support at home. I discussed with her about going to rehab which will enable her to get more physical therapy, help manage her blood glucose in the interim and then go home. I discussed that she is at high risks of falls that could lead into life- threatening injury as she is on blood thinner. Patient verbalized understanding of the risks involved. However, she continued to state that she wants to go home. Discussed with case management about home health; however there is difficulty in arranging that as well due to patient's home location. I discussed my concerns with patient's sister Monet over the phone as well. Full code DVT prophylaxis eliquis DispositionPT OT recommends rehab. However, patient refuses that that and wants to go home. Possible DC in am Please note the above document was generated using voice recognition software. It may contain grammatical, syntax or spelling errors. Any formal questions or concerns about the content, text or information contained within the body of this dictation should be directly addressed to the provider for clarification Admission and Anticipated Discharge Date Admission Date: October 06, 2024 Subjective Patient seen and examined at bedside. Comfortable; not in distress. Denies fever, chills, chest pain, shortness of breath, abdominal pain or urinary symptoms. No significant overnight events Review of Systems Review of Systems: All systems reviewed & are unremarkable except as noted in Subjective Physical Exam Physical Exam: Constitutional: Awake, alert oriented x 3; not in distress. Respiratory: Bilateral vesicular breath sound. Cardiovascular: RRR, no murmur, no edema Vessels: no JVD or carotid bruit Chest: normal inspection of chest Abdomen: normal bowel sounds, soft, nontender, no hepatosplenomegaly Musculoskeletal: no cyanosis or clubbing, extremities motor strength 5/5 Skin: no rashes, warm and dry normal turgor Neurologic: PERRL, EOMI, accommodation nl, no face palsy, no dysarthria CN's II- XI intact bilaterally and moves all extremities Psychiatric: A+Ox3, euthymic affect Results & Data Results & Data Vital Signs (Past 12 Hours) Vital Signs Temp Pulse Resp BP O2 Del Method 10/11/24 08:00 36.6 C 72 18 120/75 Room Air (2) Urinary tract infection Hematuria presence: with hematuria Urinary tract infection type: acute cystitis Qualified Code(s): N30.01 - Acute cystitis with hematuria
[2024-10-11 20:48] VITALS: TEMP 97.3
[2024-10-12 07:47] VITALS: O2SAT 98
[2024-10-12] MEDS: LANTUS PER UNIT CHARGE SC SCH (09:05)
--- NOTE | 2024-10-12 10:12 | Hospitalist Progress Note ---
Date of Service October 12, 2024 Assessment & Plan (1) Diabetes mellitus with hyperosmolarity without hyperglycemic hyperosmolar nonketotic coma: (2) Urinary tract infection: Plan: E. coli (3) Deep vein thrombosis, lower right extremity: (4) Diabetic peripheral neuropathy associated with type 2 diabetes mellitus: (5) Diabetes type 2, uncontrolled: (6) Glaucoma: Plan Patient is a 59-year-old female with past medical history of diabetes mellitus who presented to the hospital with confusion. Hyperosmolar hyperglycemic state Acute UTI Uncontrolled type 2 diabetes mellitus Acute right lower extremity DVT Patient presented with glucose of 759 and confusion Urinalysis suggestive of infection HbA1c is greater than 16.9% Urine culture growing E. coli Venous duplex positive for DVT in right superficial femoral vein. Continue insulin as per pharmacy; certified shorthand reporter on board. Questionable compliance as patient has not picked up any of her home meds including lisinopril/hydrochlorothiazide, metformin and insulin for several months. Continue on Eliquis for DVT. Will need to be on anticoagulation for at least 3 months. Will need age-appropriate cancer screening. Continue antibiotic for acute UTI; plan to treat for 5days PT OT ordered; patient might benefit from rehab. Patient has multiple falls over the last few weeks due to ambulatory dysfunction; she has questionable compliance and has very little support at home. I discussed with her about going to rehab which will enable her to get more physical therapy, help manage her blood glucose in the interim and then go home. I discussed that she is at high risks of falls that could lead into life- threatening injury as she is on blood thinner. Patient verbalized understanding of the risks involved. However, she continued to state that she wants to go home. Discussed with case management about home health; however there is difficulty in arranging that as well due to patient's home location. I discussed my concerns with patient's sister Monet over the phone as well. Full code DVT prophylaxis eliquis DispositionPT OT recommends rehab. However, patient refuses that that and wants to go home. Possible DC in am Please note the above document was generated using voice recognition software. It may contain grammatical, syntax or spelling errors. Any formal questions or concerns about the content, text or information contained within the body of this dictation should be directly addressed to the provider for clarification Admission and Anticipated Discharge Date Admission Date: October 06, 2024 Subjective Patient seen and examined at bedside. Comfortable; not in distress. Denies fever, chills, chest pain, shortness of breath, abdominal pain or urinary symptoms. No significant overnight events Physical Exam Physical Exam: Constitutional: Awake, alert oriented x 3; not in distress. Respiratory: Bilateral vesicular breath sound. Cardiovascular: RRR, no murmur, no edema Vessels: no JVD or carotid bruit Chest: normal inspection of chest Abdomen: normal bowel sounds, soft, nontender, no hepatosplenomegaly Musculoskeletal: no cyanosis or clubbing, extremities motor strength 5/5 Skin: no rashes, warm and dry normal turgor Neurologic: PERRL, EOMI, accommodation nl, no face palsy, no dysarthria CN's II- XI intact bilaterally and moves all extremities Psychiatric: A+Ox3, euthymic affect Results & Data Results & Data Vital Signs (Past 12 Hours) Vital Signs Temp Pulse Resp BP Pulse Ox O2 Del Method 10/12/24 07:46 36.3 C L 86 18 152/88 H 98 Room Air (2) Urinary tract infection Hematuria presence: with hematuria Urinary tract infection type: acute cystitis Qualified Code(s): N30.01 - Acute cystitis with hematuria
[2024-10-12 11:10] VITALS: BP 132/78; PULSE 62; RESP 17
--- NOTE | 2024-10-12 11:35 | Pharmacy Report ---
Pharmacy Glycemic Short Note 2 - Date of Service October 12, 2024 - Glycemic Short BSG Results (Last 24 hours): 10/11/24 10/11/24 10/11/24 11:34 16:27 20:38 POC Glucose 299 H 149 H 191 H 10/12/24 10/12/24 07:18 11:18 POC Glucose 185 H 198 H OUTPATIENT ANTIDIABETIC REGIMEN: * Levemir 20 units SQ q HS * Ozempic 0.5mg SQ weekly * metformin 1000mg po bid HbA1c: > 16.9% on 10/07/24 ASSESSMENT: 10/12: * Patient received total of 71 units of insulin yesterday, of which 25 units were basal * Fasting BSG >180 - therefore titrate up to 30 units of basal this AM * BSGs yesterday above goal range, will tighten CF/CR this AM 10/09: * Blood sugars remain labile, ranging 131-296 mg/dL over past 24 hours * Received 64 units of insulin yesterday (20 units of basal and 44 units of prandial/correctional bolus) * Parameters were significantly tightened yesterday, but given significant downtrend of 296 -> 131 and provider concern for hypoglycemia, parameters loosened 10/08: * Gladis received 40 units of SQ insulin yesterday (15 units basal + 26 units bolus) with BSG trending up throughout the day (146, 156, 234, 240). * Persistent hyperglycemia today as well. Fasting BSG > 200 mg/dL. Will increase basal dose to weight/stress 2. * Will also tighten carb coverage. Hesitant to make significant change to both basal and bolus insulin given Novolog parameters are already at stress of 3. Suspect persistent BSG elevation is more likely due to basal insulin deficiency. Will add overnight checks. 10/07 * 59 year old female admitted last evening for hyperglycemia likely induced by a UTI. [place] BSG on admit was 759mg/dL, this is not likely [facility] as the effective serum osmolality is < 320. (Na was 127) * A 10unit regular insulin bolus was given yesterday afternoon and then a regular insulin drip was started at 0.1 units/kg/hr. BSGs quickly decreased and at bedtime BSG was 126mg/dL. * The insulin drip was transitioned to SQ insulin last evening. 15 units of lantus were given last night and a weight based bolus insulin regimen with a stress of 3 was started. * BSGs have remained better controlled today so far. Fasting BSG was 146 this morning. * Lantus 15units q HS will be continued and as will the bolus insulin with the parameters started last evening. * She continues on ceftriaxone for the treatment of her UTI. PLAN FOR INPATIENT GLYCEMIC CONTROL: * Hold outpatient diabetes medications * Basal insulin * Lantus 25-30 units daily * Bolus insulin * NovoLog per scale ACHS or Q6hrs while NPO * Goal Range: Low 110 mg/dL - High 140 mg/dL * Correction Factor: 15 mg/dL/unit * Nutritional / Prandial insulin per carb ratio of 1 unit per 5 grams CHO consumed
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
== END 2024-10-12 16:54 | disposition home health service (06) | DRG 638 ==
LOC: ED 11:29 → SUATTDRO 14:00 → 4W 14:00 → 3N 10-08 23:52